=== PATIENT | male | born 1950 | race Caucasian/White ===

== ENCOUNTER → 2017-05-31 10:55 | Outpatient (POV) | payer MEDICARE, SELFPAY | PROVIDERS: Family Provider Family Medicine; Visit Provider Otolaryngology | DX: Z00.00 Encounter for general adult medical examination without abnormal findings (principal) ==

== ENCOUNTER 2018-08-03 12:02 | Emergency (ER) | payer MEDICARE, SELFPAY ==
[2018-08-03 12:17] VITALS: BP 131/71; PULSE 88; RESP 16; TEMP 36.6; O2SAT 98; BMI 34.4
--- NOTE | 2018-08-03 12:32 | HMH.EDUTC ---
[facility] [place] Disposition Clinical Impression: Constipation Qualifiers: Constipation type: unspecified constipation type Qualified Code(s): K59.00 - Constipation, unspecified Disposition: Home, Self-Care Condition on Discharge: Good Instructions: Constipation (Alternative Therapy), Constipation, Increased Dietary Fiber May Improve Constipation Conditions With Pelvic Carlos Alberto, DI for Constipation, DI for Fecal Impaction, Fecal Impaction Additional Instructions: Make sure to be drinking plenty of fluids this will help to prevent constipation Exercise may help to prevent constipation *Make sure to eat plenty of fiber to help keep bowels moving and prevent constipation Over the counter Stool softner may help Return if needed Follow up with family doctor if symptoms return or continue Over the counter glycerin suppositorys may help to soften stool and help it to pass easily Straight to ER if any life threatening sympotms Referrals: Hernán Duarte [Primary Care Provider] - As needed Time of Disposition: 13:51 Medical Decision Making - Flo Inquiry Pt receiving controlled substance: No Flo was queried for this patient: No Vital Signs: 08/03/18 12:17 08/03/18 13:54 Temperature 97.9 F 97.9 F Temperature Source Oral Oral Pulse Rate 88 Pulse Rate [Right Brachial] 88 Respiratory Rate 16 16 Blood Pressure 131/71 Blood Pressure [Right Arm] 131/71 Blood Pressure Mean [Right Arm] 91 Blood Pressure Source Automatic Cuff Blood Pressure Source [Right Arm] Automatic Cuff Blood Pressure Position Sitting Blood Pressure Position [Right Arm] Sitting 02 Sat by Pulse Oximetry 98 Oxygen Delivery Method Room Air Room Air - Radiology Data #1 Image(s): KUB Image Reviewed: Yes I reviewed the patient's radiology image w/the ED provider Discussed with Dr Everett moderate amount of stool noted, constipation - Reevaluation(s) Time: 13:20 Reevaluation #1: Patient reports feeling much better and no longer having pain and pressure in rectal area, patient to the bathroom and had another bowel movement and urinated easily Patient to be dc'd home [facility] [place] HPI - General Stated complaint: Constipated and trouble u Time Seen by Provider: 08/03/18 12:33 Mode of Arrival: Ambulatory Source of Information: Patient, Spouse Limitations: No Limitations Description of Symptoms (Recalled from Triage Doc. by RN): PATIENT C/O CONSTIPATION X2 DAYS AND TROUBLE URINATING SINCE LAST NIGHT HEENT Symptoms (Recalled from RN notes): No Resp Symptoms (Recalled from RN notes): No Skin Symptoms (Recalled from RN notes): No MS Symptoms (Recalled from RN notes): No Functional Status (Recalled from RN notes): N/A - History of Present Illness Provider Complaint: Patient states that he has been constipated for 2 days and feels like he has stool stuck at his rectum State that he tries to go and feels the pressure to go but unable to get anything out State that he feels like it is pressing on his prostate or bladder making him feel like he has to urinate State that last urinated around 10am this morning ever since has been feeling like he needs to go but doesn't State that he feels like his poop is stuck at his rectum and wont come out and makes it hard to sit on his buttock because of the pressure - Related Data Home Medications Medication Instructions Recorded Confirmed Allopurinol [Allopurinol 300mg 300 mg PO DAILY 08/03/18 08/03/18 tablet] Aspirin [Aspir 81] 81 mg PO DAILY 08/03/18 08/03/18 Clopidogrel Bisulfate [Plavix 75mg 75 mg PO DAILY 08/03/18 08/03/18 Tab] Garlic 1 each PO DAILY 08/03/18 08/03/18 Lisinopril [Lisinopril 20mg Tab] 20 mg PO BID 08/03/18 08/03/18 [place]-3 Fatty Acids/Fish Oil 2 each PO DAILY 08/03/18 08/03/18 [[place] 3 1,000 mg Softgel] hydroCHLOROthiazide [HCTZ 25mg 25 mg PO DAILY 08/03/18 08/03/18 tab] Allergies Allergy/AdvReac Type Severity Reaction Status Date / Time Sulfa (Sulfonamide Allergy Unknown
--- NOTE | 2018-08-03 12:49 | XR_ITS ---
XR KUB HISTORY: ITS.REASON: CONSTIPATION ORDERING PHYSICIAN: Rox Lazaro APRN PATIENT AGE: 67 years COMPARISON: None FINDINGS: Nonspecific bowel gas pattern. No intestinal obstruction. There is only a small amount of formed feces in the sigmoid colon. No evidence of rectal fecal impaction. Degenerative changes are present in the lumbar spine and hips. There are surgical clips in the right upper quadrant IMPRESSION: No acute finding
--- NOTE | 2018-08-03 12:50 | ED_ITS ---
[facility] [place] Disposition Clinical Impression: Constipation Qualifiers: Constipation type: unspecified constipation type Qualified Code(s): K59.00 - Constipation, unspecified Disposition: Home, Self-Care Condition on Discharge: Good Instructions: Constipation (Alternative Therapy), Constipation, Increased Dietary Fiber May Improve Constipation Conditions With Pelvic Carlos Alberto, DI for Constipation, DI for Fecal Impaction, Fecal Impaction Additional Instructions: Make sure to be drinking plenty of fluids this will help to prevent constipation Exercise may help to prevent constipation *Make sure to eat plenty of fiber to help keep bowels moving and prevent constipation Over the counter Stool softner may help Return if needed Follow up with family doctor if symptoms return or continue Over the counter glycerin suppositorys may help to soften stool and help it to pass easily Straight to ER if any life threatening sympotms Referrals: Hernán Duarte [Primary Care Provider] - As needed Time of Disposition: 13:51 Medical Decision Making - Flo Inquiry Pt receiving controlled substance: No Flo was queried for this patient: No Vital Signs: 08/03/18 12:17 08/03/18 13:54 Temperature 97.9 F 97.9 F Temperature Source Oral Oral Pulse Rate 88 Pulse Rate [Right Brachial] 88 Respiratory Rate 16 16 Blood Pressure 131/71 Blood Pressure [Right Arm] 131/71 Blood Pressure Mean [Right Arm] 91 Blood Pressure Source Automatic Cuff Blood Pressure Source [Right Arm] Automatic Cuff Blood Pressure Position Sitting Blood Pressure Position [Right Arm] Sitting 02 Sat by Pulse Oximetry 98 Oxygen Delivery Method Room Air Room Air - Radiology Data #1 Image(s): KUB Image Reviewed: Yes I reviewed the patient's radiology image w/the ED provider Discussed with Dr Everett moderate amount of stool noted, constipation - Reevaluation(s) Time: 13:20 Reevaluation #1: Patient reports feeling much better and no longer having pain and pressure in rectal area, patient to the bathroom and had another bowel movement and urinated easily Patient to be dc'd home [facility] [place] HPI - General Stated complaint: Constipated and trouble u Time Seen by Provider: 08/03/18 12:33 Mode of Arrival: Ambulatory Source of Information: Patient, Spouse Limitations: No Limitations Description of Symptoms (Recalled from Triage Doc. by RN): PATIENT C/O CONSTIPATION X2 DAYS AND TROUBLE URINATING SINCE LAST NIGHT HEENT Symptoms (Recalled from RN notes): No Resp Symptoms (Recalled from RN notes): No Skin Symptoms (Recalled from RN notes): No MS Symptoms (Recalled from RN notes): No Functional Status (Recalled from RN notes): N/A - History of Present Illness Provider Complaint: Patient states that he has been constipated for 2 days and feels like he has stool stuck at his rectum State that he tries to go and feels the pressure to go but unable to get anything out State that he feels like it is pressing on his prostate or bladder making him feel like he has to urinate State that last urinated around 10am this morning ever since has been feeling like he needs to go but doesn't State that he feels like his poop is stuck at his rectum and wont come out and makes it hard to sit on his buttock because of the pressure - Related Data Home Medications Medication Instructions Recorded Confirmed A
[2018-08-03 13:54] VITALS: BP 131/71; PULSE 88; RESP 16; TEMP 36.6; O2SAT 98
== END 2018-08-03 13:55 | disposition home or self-care (01) ==
PROVIDERS: Emergency Provider Nurse Practitioner; PCP Family Medicine
DX: K59.00 Constipation, unspecified (principal); F17.290 Nicotine dependence, other tobacco product, uncomplicated
CPT/HCPCS: G0463; 74018; 99201

== ENCOUNTER → 2018-10-03 13:00 | Outpatient (CLI) | payer MEDICARE, OTHER, SELFPAY ==
--- NOTE | 2018-10-03 13:14 | MR_ITS ---
MR lumbar spine wo con, MR 3-d myelogram/MRCP HISTORY: Low back pain X 10-12 months. RT hip pain and RT lower extremity pain. ITS.REASON: LOW BACK PAIN ORDERING PHYSICIAN: Hernán Duarte PATIENT AGE: 67 years Comparison: None TECHNIQUE: Standard multiplanar multiecho sequences are performed without contrast. 3-D MIP and myelographic images are also rendered and reviewed FINDINGS: There is normal alignment. The spinal cord ends at the L1 level. T12-L1: Mild degenerative disc disease with mild facet and ligamentum flavum hypertrophy. L1-L2: Degenerative disc disease with bulging disc with with facet and ligamentum flavum hypertrophy with moderate bilateral lateral recess and foraminal narrowing slightly greater on the left. L2-L3: Mild degenerative disc disease with minimal bulging disc along with facet and ligamentum flavum hypertrophy with moderate right and mild left lateral recess and moderate bilateral foraminal narrowing. There is also a small right paracentral disc herniation with inferior extrusion. The disc is extruded inferiorly x 11 mm. Results in severe right lateral recess narrowing and compression upon the right L3 nerve root. L3-L4: There is a moderate sized central/right paracentral disc herniation with superior extrusion. The disc is extruded superiorly for a length of 1.9 cm. This is causing moderate compression upon the thecal sac along with compression upon the right L4 nerve root. There is facet ligamentum hypertrophy at this level with resultant severe bilateral lateral recess and severe bilateral foraminal narrowing. The foraminal and lateral recess narrowing is worse on the right compared to the left side. There is resultant canal stenosis secondary to the disc herniation. There is also transverse narrowing of the canal at 11 mm secondary to the severe facet and ligamentum flavum hypertrophy. L4-L5: Mild anterolisthesis of L4 on L5 of 3 mm with mild bulging disc along with moderate to severe facet and ligamentum flavum hypertrophy with resultant moderate bilateral foraminal narrowing and moderate bilateral lateral recess narrowing. There is also transverse narrowing of the canal at 11 mm. L5-S1: Unremarkable. IMPRESSION: 1. Multilevel lumbar spondylosis with bulging discs, degenerative disc disease, facet and ligamentum flavum hypertrophy with very degrees of foraminal or lateral recess narrowing with borderline canal stenosis. PLEASE SEE ABOVE FOR DETAILED DESCRIPTION AT EACH LEVEL. 2. Mild degenerative disc disease at L2-L3 with minimal bulging disc along with facet and ligamentum flavum hypertrophy with moderate right and mild left lateral recess and moderate bilateral foraminal narrowing. There is also a small right paracentral disc herniation with inferior extrusion. The disc is extruded inferiorly x 11 mm. This results in severe right lateral recess narrowing and compression upon the right L3 nerve root. 3. Moderate sized central/right paracentral disc herniation at L3-L4 with superior extrusion. The disc is extruded superiorly for a length of 1.9 cm. This is causing moderate compression upon the thecal sac along with compression upon the right L4 nerve root. There is facet ligamentum hypertrophy at this level with resultant severe bilateral lateral recess and severe bilateral foraminal narrowing. The foraminal and lateral recess narrowing is worse on the right compared to the left side. There is resultant canal stenosis secondary to the disc herniation. There is also transverse narrowing of the canal at 11 mm secondary to the severe facet and ligamentum flavum hypertrophy.
== END ==
PROVIDERS: PCP Family Medicine; Visit Provider Family Medicine
DX: M54.5 Low back pain (principal)
CPT/HCPCS: 72148; 76376

== ENCOUNTER 2019-07-02 14:35 | Emergency (ER) | payer MEDICARE, OTHER, SELFPAY ==
[2019-07-02 14:36] VITALS: BP 122/74; PULSE 100; RESP 18; TEMP 36.6; O2SAT 98; BMI 31.5
[2019-07-02 14:46] VITALS: BMI 34.4
--- NOTE | 2019-07-02 15:00 | HMH.EDBACK ---
ED Disposition Clinical Impression: Strain of lumbar region Disposition: Home, Self-Care Condition on Discharge: Good Instructions: DI for Low Back Pain Prescriptions: Nabumetone 750 mg PO BID 10 Days #20 tab Transmission Status: Pending to [facility] website # Tizanidine HCl [Zanaflex 4mg tablet] 4 mg PO TID 10 Days #30 tab Transmission Status: Pending to [facility] website # Referrals: Hernán Duarte [Primary Care Provider] - - Critical Care Critical Care Time: No Attestation: On 07/02/19, the high probability of a clinically significant, sudden or life threatening deterioration of the following system(s) required my full and direct attention, intervention and personal management. The time I documented below is in addition to time spent performing reported procedures but includes the following listed in this critical care notation. Medical Decision Making - Medical Records Medical records reviewed: Yes: I reviewed the patient's medical records. - Flo Inquiry Pt receiving controlled substance: No - Lab Data Lab results reviewed: Yes: I reviewed the patient's lab results. Orders (Tests/Meds): ED MEDICATIONS Generic Name Dose Route Start Last Admin Trade Name Freq PRN Reason Stop Dose Admin Ketorolac Tromethamine 60 mg 07/02/19 14:59 Toradol 60mg/2ml Vial IM 07/02/19 15:00 ONCE ONE Methylprednisolone Sodium Succinate 125 mg 07/02/19 14:59 Solu-Medrol 125mg/2ml Vial IM 07/02/19 15:00 ONCE ONE Orphenadrine Citrate 60 mg 07/02/19 15:00 Norflex 60mg/2ml Vial IM 07/02/19 15:01 ONCE ONE Back Pain HPI - General Chief Complaint: Back Pain/Injury Stated Complaint: Back Pain Time Seen by Provider: 07/02/19 15:00 Source of Information: Patient - History of Present Illness HPI Narrative: 68-year-old male presents to the ED with a lower back pain. Patient has chronic lower back pain but is manageable. 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 He describes the pain is sharp in the right iliac joint area. He denies any sort of bowel or bladder incontinence. He states his pain is 4 out of 10 and sharp. He states alleviating factors include sitting and laying down exacerbating factors include movement. Patient denies any fever shakes or chills patient denies any nausea vomiting diarrhea. - Related Data Home Medications Medication Instructions Recorded Confirmed Aspirin [Aspir 81] 81 mg PO DAILY 08/03/18 08/03/18 Clopidogrel Bisulfate [Plavix 75mg 75 mg PO DAILY 08/03/18 08/03/18 Tab] Garlic 1 each PO DAILY 08/03/18 08/03/18 [place]-3 Fatty Acids/Fish Oil 2 each PO DAILY 08/03/18 08/03/18 [[place] 3 1,000 mg Softgel] allopurinoL [Allopurinol 300mg 300 mg PO DAILY 08/03/18 08/03/18 tablet] hydroCHLOROthiazide [HCTZ 25mg 25 mg PO DAILY 08/03/18 08/03/18 tab] lisinopriL [Lisinopril 20mg Tab] 20 mg PO BID 08/03/18 08/03/18 Previous Rx's Medication Instructions Recorded Nabumetone 750 mg PO BID 10 Days #20 tab 07/02/19 Tizanidine HCl [Zanaflex 4mg 4 mg PO TID 10 Days #30 tab 07/02/19 tablet] Allergies Allergy/AdvReac Type Severity Reaction Status Date / Time Sulfa (Sulfonamide Allergy Unknown Verified 08/03/18 12:32 Antibiotics) [facility] History - Hepatitis A Screen Attestation statement:: This patient has been screened for Hepatitis A risk factors. I have reviewed the patient's past medical history: Yes Medical History: Denies:: Cancer, Diabetes Mellitus Type 1, Diabetes Mellitus Type 2, MRSA Laterality Cases: Bilateral: Tonsillectomy Amputation: No - Social History Smoking Status: Current every day smoker Tobacco Type: smokeless tobacco # Packs/Day (cigarettes): 0 Alcohol Intake: never Occupational Status: other ROS Obtained: Yes All systems reviewed & no additional complaints - Constitutional Constitutional: Reports sys
[2019-07-02 15:42] VITALS: BP 132/74; PULSE 78; RESP 18; TEMP 36.6; O2SAT 98
== END 2019-07-02 15:43 | disposition home or self-care (01) ==
PROVIDERS: Emergency Provider Family Medicine; PCP Family Medicine
DX: S33.5XXA Sprain of ligaments of lumbar spine, initial encounter (principal); X50.0XXA Overexertion from strenuous movement or load, initial encounter; Y92.73 Farm field as the place of occurrence of the external cause; I10 Essential (primary) hypertension; Z88.2 Allergy status to sulfonamides; Z90.09 Acquired absence of other part of head and neck
CPT/HCPCS: 96372; 99281

== ENCOUNTER → 2021-07-15 07:28 | Outpatient (CLI) | payer MEDICARE, OTHER, SELFPAY ==
--- NOTE | 2021-07-15 07:34 | FL_ITS ---
FINAL REPORT CLINICAL HISTORY: gerd, upper abd pain x 1 month fluoro time-1.55 FINDINGS: UPPER GI EXAM HISTORY: Dysphagia. Epigastric pain. PROCEDURE: The patient ingested barium. Effervescent crystals were also administered. Spot and overhead films were obtained. FINDINGS: The esophagus is normal. There is no hiatal hernia. There is no gastroesophageal reflux. Peristalsis is normal. The rugal fold pattern of the stomach is normal. The duodenal bulb is normal. Aspiration of a small amount of contrast was noted during the exam. FLUOROSCOPY TIME: 1.55 minutes. 13 radiographs were obtained. IMPRESSION: Aspiration of contrast. Otherwise, unremarkable exam. Films reviewed , interpreted and dictated by Dr. Del Rio. Transcribed by Connor Snell PA-C. Reviewed, Interpreted and Dictated by Murray Del Rio III, MD Transcribed by SHANTANU Jerry Authenticated by Murray Del Rio III, MD on 07/15/2021 12:26:59 PM [facility]
[2021-07-15 09:38] LABS: Prostate Specific Ag Screen 6.9 ng/ml (0.0-4.0)
[2021-07-17 10:03] LABS: H. pylori Stool Ag, EIA Negative (Negative)
== END ==
PROVIDERS: PCP Family Medicine; Visit Provider Family Medicine
DX: R10.13 Epigastric pain (principal); K21.9 Gastro-esophageal reflux disease without esophagitis; R97.20 Elevated prostate specific antigen [PSA]; Z12.5 Encounter for screening for malignant neoplasm of prostate
CPT/HCPCS: 36415; 74221; 74246; 87338; G0103

== ENCOUNTER 2021-09-01 10:24 | Emergency (ER) | payer MEDICARE, OTHER, SELFPAY ==
[2021-09-01 10:40] VITALS: BP 149/72; PULSE 72; RESP 17; TEMP 36.8; O2SAT 96; BMI 29.0
--- NOTE | 2021-09-01 11:12 | HMH.EDUTC ---
[facility] [place] Clinical Impression: Viral syndrome Disposition: Home, Self-Care Condition on Discharge: Good Instructions: DI for Nasal Congestion, DI for COVID-19 (Suspected or Confirmed ), Preventing the Spread of Coronavirus Discharge Instructions Additional Instructions: *Monitor Temp, Over the counter Motrin or Tylenol as directed/as needed Tylenol every 4 hours and Motrin every 6 hours (as long as your family doctor has told you that you can take it) for fever or pain. and straight to ER if unable to lower temp less than 101.0 after medication given *Warm salt water gargles may help to soothe the throat *Throat Lozenges *Warm fluids like tea with honey may help to soothe the throat *Sleep elevated *Humidifier/Vaporizer Follow up IMMEDIATELY for new or worsening symptoms or no Noticeable improvement over the next 48-72 hours. 911 for difficulty breathing or swallowing You were tested for today for COVID19 your test result should be back in the next 24-48 hours, you may check your results on the [facility] My Health Portal Make sure to take your Vitamins Vit. C Vit D and Zinc if you can take them Referrals: Hernán Duarte [Primary Care Provider] - As needed Time of Disposition: 11:17 Medical Decision Making - Flo Inquiry Pt receiving controlled substance: No Flo was queried for this patient: No Vital Signs: 09/01/21 10:40 09/01/21 11:18 Temperature 98.2 F 98.2 F Temperature Source Oral Pulse Rate 72 Pulse Rate [Right Brachial] 72 Respiratory Rate 17 17 Blood Pressure 149/72 H Blood Pressure [Right Arm] 149/72 H Blood Pressure Mean [Right Arm] 97 Blood Pressure Source [Right Arm] Automatic Cuff Blood Pressure Position [Right Arm] Sitting 02 Sat by Pulse Oximetry 96 Oxygen Delivery Method Room Air Orders (Tests/Meds): ORDERS Category Date Time Status Covid-19 Nasal PCR ([facility]) Routine Lab 09/01/21 10:45 Received [facility] [place] HPI - General Stated complaint: cough, congestion, sore throat Time Seen by Provider: 09/01/21 11:12 Mode of Arrival: Ambulatory Source of Information: Patient Limitations: No Limitations Description of Symptoms (Recalled from Triage Doc. by RN): PATIENT C/O SINUS PRESSURE AND COUGH. TESTED POSITIVE FOR COVID WITH A HOME TEST YESTERDAY HEENT Symptoms (Recalled from RN notes): Yes Resp Symptoms (Recalled from RN notes): Yes Skin Symptoms (Recalled from RN notes): No MS Symptoms (Recalled from RN notes): No Functional Status (Recalled from RN notes): WNL - History of Present Illness Provider Complaint: Patient state that he has been having sinus congestion and cough States that it started last Tuesday States that he is feeling better today but took an at home COVID test and it was positive so family wanted him to come in and get tested - Related Data Home Medications Medication Instructions Recorded Confirmed Aspirin [Aspir 81] 81 mg PO DAILY 08/03/18 08/03/18 Clopidogrel Bisulfate [Plavix 75mg 75 mg PO DAILY 08/03/18 08/03/18 Tab] Garlic 1 each PO DAILY 08/03/18 08/03/18 [place]-3 Fatty Acids/Fish Oil 2 each PO DAILY 08/03/18 08/03/18 [[place] 3 1,000 mg Softgel] allopurinoL [Allopurinol 300mg 300 mg PO DAILY 08/03/18 08/03/18 tablet] hydroCHLOROthiazide [HCTZ 25mg 25 mg PO DAILY 08/03/18 08/03/18 tab] lisinopriL [Lisinopril 20mg Tab] 20 mg PO BID 08/03/18 08/03/18 Previous Rx's Medication Instructions Recorded Nabumetone 750 mg PO BID 10 Days #20 tab 07/02/19 Tizanidine HCl [Zanaflex 4mg 4 mg PO TID 10 Days #30 tab 07/02/19 tablet] Allergies Allergy/AdvReac Type Severity Reaction Status Date / Time Sulfa (Sulfonamide Allergy Unknown Verified 08/03/18 12:32 Antibiotics) - Worker's Comp Is this a Worker's Comp case?: No [facility] History - Hepatitis A Screen Attestation statement:: This patient has been screened for Hepatitis A risk factors. I have reviewed the patient's past medical history: Yes Medical
[2021-09-01 11:18] VITALS: BP 149/72; PULSE 72; RESP 17; TEMP 36.8; O2SAT 96
== END 2021-09-01 11:21 | disposition home or self-care (01) ==
PROVIDERS: Emergency Provider Nurse Practitioner; PCP Family Medicine
DX: U07.1 COVID-19 (principal); R05.9 Cough, unspecified; R09.89 Other specified symptoms and signs involving the circulatory and respiratory systems; J02.9 Acute pharyngitis, unspecified
CPT/HCPCS: 99212; C9803; G0463; U0003; U0005

== ENCOUNTER → 2021-09-16 07:55 | Outpatient (CLI) | payer MEDICARE, OTHER, SELFPAY ==
[2021-09-16 08:58] LABS: Anion Gap 11.6 mEq/L (5-15); Blood Urea Nitrogen 17 mg/dl (9-20); Calcium 9.2 mg/dl (8.4-10.2); Carbon Dioxide 29 mmol/L (22.0-30.0); Chloride 99 mmol/L (98-107); Estimated Glomerular Filt Rate 83 ml/min (>60); GFR (African American) 101 ML/MIN (>60); Glucose 194 mg/dl (74-100); Magnesium 1.5 mg/dl (1.6-2.3); Potassium 3.6 mmoL/L (3.5-5.1); Sodium 136 mmol/L (136-145)
[2021-09-17 09:13] LABS: PSA, Free 0.72 ng/mL; Prostate Specific Ag 3.8 ng/mL (0.0-4.0)
== END ==
PROVIDERS: PCP Family Medicine; Visit Provider Family Medicine
DX: N40.1 Benign prostatic hyperplasia with lower urinary tract symptoms (principal)
CPT/HCPCS: 36415; 80048; 83735; 84153; 84154

== ENCOUNTER 2022-06-30 08:00 | Outpatient (RCR) | payer MEDICARE, OTHER, SELFPAY | END 2022-06-30 08:05 | disposition home or self-care (01) | LOC: PT 08:00 | PROVIDERS: PCP Family Medicine; Visit Provider Nurse Practitioner | DX: M51.16 Intervertebral disc disorders with radiculopathy, lumbar region (principal) | CPT/HCPCS: 97010; 97012; 97014; 97016; 97110; 97163; G0283 ==

== ENCOUNTER → 2022-09-16 11:00 | Outpatient (CLI) | payer MEDICARE, OTHER, SELFPAY ==
[2022-09-16 10:22] LABS: Hemoglobin A1C 6.5 % (4.0-6.0)
== END ==
PROVIDERS: PCP Family Medicine; Visit Provider Family Medicine
DX: R73.9 Hyperglycemia, unspecified (principal)
CPT/HCPCS: 83036

== ENCOUNTER → 2023-01-17 16:00 | Outpatient (CLI) | payer MEDICARE, OTHER, SELFPAY | PROVIDERS: PCP Family Medicine; Visit Provider Family Medicine | DX: E11.9 Type 2 diabetes mellitus without complications (principal) | CPT/HCPCS: 83036 ==

== ENCOUNTER 2023-05-03 16:43 | Outpatient (CLI) | payer MEDICARE, OTHER, SELFPAY ==
[2023-05-03 16:35] LABS: Alanine Aminotransferase 30 U/L (12-78); Albumin Level 4.3 g/dl (3.5-5.0); Albumin/Globulin Ratio 1.7 (1.1-1.8); Alkaline Phosphatase 128 U/L (38-126); Anion Gap 15.2 mEq/L (5-15); Aspartate Amino Transferase 28 U/L (17-59); Bilirubin,Total 0.4 mg/dl (0.2-1.3); Blood Urea Nitrogen 20 mg/dl (9-20); Calcium 9.4 mg/dl (8.4-10.2); Carbon Dioxide 28 mmol/L (22.0-30.0); Chloride 100 mmol/L (98-107); Estimated Glomerular Filt Rate 73 ml/min (>60); GFR (African American) 89 ML/MIN (>60); Globulin 2.6 g/dL (1.3-3.2); Glucose 112 mg/dl (74-100); Potassium 4.2 mmoL/L (3.5-5.1); Sodium 139 mmol/L (136-145); Total Protein,Serum 6.9 g/dl (6.3-8.2)
[2023-05-03 16:43] LABS: Basophils % 0.5 % (0.1-2.0); Eosinophils % 0.4 % (0.1-12.0); Hematocrit 44.5 % (42.0-52.0); Hemoglobin 14.6 g/dL (14.1-18.0); Lymphocytes # 1.6 K/mm3 (0.7-4.5); Lymphocytes % 19.2 % (10-50); Mean Corpuscular HGB Conc 32.8 g/dL (31.8-35.4); Mean Corpuscular Hemoglobin 32.7 pg (27.0-31.2); Mean Corpuscular Volume 99.7 fl (80-94); Mean Platelet Volume 8.7 fl (7.4-10.4); Monocytes # 0.5 K/mm3 (0.1-1.0); Monocytes % 6.6 % (1.7-9.3); Neutrophils % 73.2 % (37.0-80.0); Platelet Count 263 K/mm3 (142-424); Red Blood Count 4.46 M/mm3 (4.60-6.20); Red Cell Distribution Width 13.8 % (11.5-17.5); White Blood Count 8.1 K/mm3 (4.8-10.8)
== END 2023-05-03 23:59 ==
PROVIDERS: PCP Family Medicine; Visit Provider Family Medicine
DX: I10 Essential (primary) hypertension (principal)
CPT/HCPCS: 80053; 85025

== ENCOUNTER 2023-05-09 08:27 | Outpatient (CLI) | payer MEDICARE, OTHER, SELFPAY ==
--- NOTE | 2023-05-09 08:28 | US_ITS ---
FINAL REPORT CLINICAL HISTORY: RUQ pain COMPARISON: None FINDINGS: Sonographic images of the abdomen were obtained. The liver is fatty infiltrated. The gallbladder is surgically absent. The common hepatic duct measures 6 mm, which is within normal limits. The pancreas is partially obscured. The spleen size is normal. The right kidney measures 11.6 cm in length. The left kidney measures 10.5 cm in length. There is a 1.9 cm right renal cyst. There is a 1.7 cm cystic area in the lower pole of the left kidney which may represent a parapelvic cyst. There is no evidence of hydronephrosis. The aorta has an unremarkable appearance. Limited images of the inferior vena cava are unremarkable. IMPRESSION: Fatty liver. Probable bilateral renal cysts as above. Reviewed, Interpreted and Dictated by Murray Del Rio III, MD Transcribed by Trish Tobias Authenticated and [facility]
== END 2023-05-09 23:59 ==
PROVIDERS: PCP Family Medicine; Visit Provider Family Medicine
DX: R10.11 Right upper quadrant pain (principal)
CPT/HCPCS: 76700

== ENCOUNTER 2023-09-05 16:48 | Outpatient (CLI) | payer MEDICARE, OTHER, SELFPAY ==
[2023-09-05 17:16] LABS: Basophils % 0.6 % (0.1-2.0); Eosinophils # 0.1 K/mm3 (0.0-0.4); Eosinophils % 0.7 % (0.1-12.0); Hematocrit 42.8 % (42.0-52.0); Hemoglobin 14.4 g/dL (14.1-18.0); Lymphocytes # 1.2 K/mm3 (0.7-4.5); Lymphocytes % 16.1 % (10-50); Mean Corpuscular HGB Conc 33.6 g/dL (31.8-35.4); Mean Platelet Volume 8.7 fl (7.4-10.4); Monocytes # 0.5 K/mm3 (0.1-1.0); Monocytes % 6.3 % (1.7-9.3); Neutrophils # 5.5 K/mm3 (1.8-7.8); Neutrophils % 76.2 % (37.0-80.0); Platelet Count 263 K/mm3 (142-424); Red Blood Count 4.37 M/mm3 (4.60-6.20); Red Cell Distribution Width 14.1 % (11.5-17.5); White Blood Count 7.2 K/mm3 (4.8-10.8)
[2023-09-05 17:57] LABS: Alanine Aminotransferase 26 U/L (12-78); Albumin Level 4.4 g/dl (3.5-5.0); Albumin/Globulin Ratio 1.6 (1.1-1.8); Alkaline Phosphatase 99 U/L (38-126); Anion Gap 13.5 mEq/L (5-15); Aspartate Amino Transferase 27 U/L (17-59); Bilirubin,Total 0.6 mg/dl (0.2-1.3); Blood Urea Nitrogen 22 mg/dl (9-20); Calcium 9.4 mg/dl (8.4-10.2); Carbon Dioxide 29 mmol/L (22.0-30.0); Chloride 101 mmol/L (98-107); Estimated Glomerular Filt Rate 66 ml/min (>60); GFR (African American) 79 ML/MIN (>60); Globulin 2.7 g/dL (1.3-3.2); Glucose 114 mg/dl (74-100); Potassium 4.5 mmoL/L (3.5-5.1); Sodium 139 mmol/L (136-145); Total Protein,Serum 7.1 g/dl (6.3-8.2)
[2023-09-05 18:30] LABS: Thyroid Stimulating Hormone 1.63 uIU/mL (0.465-4.68)
[2023-09-06 13:53] LABS: Hemoglobin A1C 6.3 % (4.0-6.0)
[2023-09-07 08:21] LABS: PSA, Free 1.37 ng/mL; Prostate Specific Ag 6.4 ng/mL (0.0-4.0)
== END 2023-09-05 23:59 | disposition home or self-care (01) ==
LOC: LAB.DROPOF 16:48
PROVIDERS: PCP Family Medicine; Visit Provider Family Medicine
DX: I10 Essential (primary) hypertension (principal); R97.20 Elevated prostate specific antigen [PSA]; R73.09 Other abnormal glucose
CPT/HCPCS: 80053; 83036; 84153; 84154; 84443; 85025

== ENCOUNTER 2023-09-06 07:41 | Outpatient (CLI) | payer MEDICARE, SELFPAY | END 2023-09-06 23:59 | disposition home or self-care (01) | LOC: LAB.DROPOF 09-08 07:41 | PROVIDERS: PCP Family Medicine; Visit Provider Family Medicine | DX: R73.09 Other abnormal glucose (principal) | CPT/HCPCS: 83036 ==

== ENCOUNTER 2023-12-27 11:13 | Outpatient (POV) | payer MEDICARE, OTHER, SELFPAY | END 2023-12-27 23:59 | disposition home or self-care (01) | LOC: SC 11:13 | PROVIDERS: Visit Provider Specialist/Technologist | DX: Z00.00 Encounter for general adult medical examination without abnormal findings (principal) ==

== ENCOUNTER 2024-02-06 11:30 | Outpatient (CLI) | payer MEDICARE, OTHER, SELFPAY ==
[2024-02-06 16:27] LABS: Basophils # 0.1 K/mm3 (0-0.2); Basophils % 0.9 % (0.1-2.0); Eosinophils # 0.1 K/mm3 (0.0-0.4); Eosinophils % 1.6 % (0.1-12.0); Hematocrit 42.9 % (42.0-52.0); Hemoglobin 14.5 g/dL (14.1-18.0); Lymphocytes # 1.2 K/mm3 (0.7-4.5); Lymphocytes % 15.8 % (10-50); Mean Corpuscular HGB Conc 33.9 g/dL (31.8-35.4); Mean Corpuscular Hemoglobin 32.3 pg (27.0-31.2); Mean Corpuscular Volume 95.6 fl (80-94); Mean Platelet Volume 7.7 fl (7.4-10.4); Monocytes # 0.4 K/mm3 (0.1-1.0); Neutrophils # 5.6 K/mm3 (1.8-7.8); Neutrophils % 75.8 % (37.0-80.0); Platelet Count 265 K/mm3 (142-424); Red Blood Count 4.49 M/mm3 (4.60-6.20); Red Cell Distribution Width 13.6 % (11.5-17.5); White Blood Count 7.4 K/mm3 (4.8-10.8)
[2024-02-06 16:57] LABS: Anion Gap 11.5 mEq/L (5-15); Estimated Glomerular Filt Rate 65 ml/min (>60); GFR (African American) 79 ML/MIN (>60)
[2024-02-06 16:58] LABS: VLDL Cholesterol 38 mg/dL (0-40)
[2024-02-06 17:45] LABS: Alanine Aminotransferase 29 U/L (12-78); Albumin Level 4.3 g/dl (3.5-5.0); Albumin/Globulin Ratio 1.7 (1.1-1.8); Alkaline Phosphatase 114 U/L (38-126); Aspartate Amino Transferase 31 U/L (17-59); Bilirubin,Total 0.6 mg/dl (0.2-1.3); Blood Urea Nitrogen 24 mg/dl (9-20); Calcium 9.4 mg/dl (8.4-10.2); Carbon Dioxide 27 mmol/L (22.0-30.0); Chloride 107 mmol/L (98-107); Chol/HDL Ratio 5.6 (1-3.5); Cholesterol 195 mg/dl (140-200); Globulin 2.6 g/dL (1.3-3.2); Glucose 116 mg/dl (74-100); HDL Cholesterol 35 mg/dl (40-60); Potassium 4.5 mmoL/L (3.5-5.1); Sodium 141 mmol/L (136-145); Total Protein,Serum 6.9 g/dl (6.3-8.2); Triglycerides 191 mg/dl (30-150)
[2024-02-06 17:47] LABS: Hemoglobin A1C 6.1 % (4.0-6.0)
[2024-02-06 17:56] LABS: Direct LDL Cholesterol 122.72 mg/dL (100-129)
[2024-02-06 18:16] LABS: Prostate Specific Ag Screen 4.9 ng/ml (0.0-4.0); Thyroid Stimulating Hormone 1.27 uIU/mL (0.465-4.68)
[2024-02-06 20:13] LABS: HIV (1&2) Antibody Rapid NONREACTIVE (NONREACTIVE)
[2024-02-07 09:16] LABS: HCV Ab Non Reactive (Non Reactive)
== END 2024-02-06 23:59 | disposition home or self-care (01) ==
LOC: LAB.DROPOF 02-07 13:59
PROVIDERS: PCP Family Medicine; Visit Provider Family Medicine
DX: Z11.59 Encounter for screening for other viral diseases (principal); Z12.5 Encounter for screening for malignant neoplasm of prostate; E11.9 Type 2 diabetes mellitus without complications; I10 Essential (primary) hypertension
CPT/HCPCS: 80053; 80061; 83036; 84443; 85025; 86803; 87389; G0103

== ENCOUNTER 2024-03-30 11:18 | Observation (INO) | payer MEDICARE, SELFPAY ==
[2024-03-30] VITALS (10 sets, daily range): BP systolic 112–168; BP diastolic 45–86; PULSE 60–89; RESP 16–18; TEMP 36.6–36.9; O2SAT 95–99; BMI 32.1; BMI 30.7
--- NOTE | 2024-03-30 11:34 | CT_ITS ---
FINAL REPORT TECHNIQUE: After the administration of intravenous contrast, axial images were obtained through the abdomen and pelvis by computed tomography. The study was performed with techniques to keep radiation dose as low as reasonably achievable, (ALARA). Individual dose reduction techniques using automated exposure control or adjustment of mA and/or kV according to the patient's size were employed. CLINICAL HISTORY: Diffuse abdominal tenderness, Hx cholecystectomy constipation FINDINGS: Abdomen: The lung bases are clear. There is moderate fatty infiltration of the liver. The gallbladder is absent. There are calcified granulomas in the spleen. The pancreas and adrenals appear unremarkable. There is a benign-appearing cyst at the lateral margin of the right kidney measuring 2.2 x 1.5 cm. The aorta is normal in caliber. There is no free fluid or adenopathy. Pelvis: The appendix is mildly enlarged but air-filled. No surrounding inflammation is identified. There is a moderate amount of stool throughout the colon, particularly in the rectum. The prostate is enlarged measuring 7.0 x 5.9 cm. There is subtle stranding surrounding the inferior rectum consistent with mild proctitis. The urinary bladder is unremarkable. There is no free fluid or adenopathy. IMPRESSION: Moderate stool burden, particularly in the rectum with findings consistent with mild proctitis. Reviewed, Interpreted and Dictated by Trevor Linda MD Transcribed by Cherie Fernandez Authenticated and [facility]
[2024-03-30] MEDS: 0.9 % SODIUM CHLORIDE 1000ML 1,000 ML 999 ML IV (11:38)
[2024-03-30 11:39] LABS: Basophils # 0.1 K/mm3 (0-0.2); Basophils % 0.4 % (0.1-2.0); Eosinophils # 0.1 K/mm3 (0.0-0.4); Eosinophils % 0.4 % (0.1-12.0); Hemoglobin 15.4 g/dL (14.1-18.0); Lymphocytes # 1.2 K/mm3 (0.7-4.5); Lymphocytes % 8.5 % (10-50); Mean Corpuscular HGB Conc 34.2 g/dL (31.8-35.4); Mean Corpuscular Hemoglobin 31.8 pg (27.0-31.2); Mean Corpuscular Volume 92.8 fl (80-94); Mean Platelet Volume 9.3 fl (7.4-10.4); Monocytes # 0.7 K/mm3 (0.1-1.0); Monocytes % 5.4 % (1.7-9.3); Neutrophils # 11.6 K/mm3 (1.8-7.8); Neutrophils % 84.9 % (37.0-80.0); Platelet Count 267 K/mm3 (142-424); Red Blood Count 4.85 M/mm3 (4.60-6.20); White Blood Count 13.7 K/mm3 (4.8-10.8)
--- NOTE | 2024-03-30 11:41 | PC.NURSE ---
Patient assisted to the bathroom.
--- NOTE | 2024-03-30 11:44 | ED_ITS ---
Discharge Plan Disposition Patient Disposition: Admitted Chief Complaint: Abdominal Pain Clinical Impressions Clinical Impression: Constipation, Acute proctitis, Fecal impaction, Acute urinary retention Discharge ED Provider: Jordyn Duran General Adult HPI <Jordyn Duran MD - Last Filed: 03/30/24 15:45> General Chief complaint: Abdominal Pain Stated complaint: constipation, abd pain, Time Seen by Provider: 03/30/24 11:22 Mode of Arrival: Wheelchair Source of Information: Patient Limitations: No Limitations Description of Symptoms (Recalled from ER Triage Doc. by RN): Reports abdomen and anal pain. States that he feels constipated. Did report that he did a fleets enema at 9am and also took Miralax at 930am. History of Present Illness HPI narrative: Patient is a 73-year-old male presenting with abdominal pain. Patient is accompanied by his who provides additional history at bedside. Patient reports last bowel movement approximately 3 days ago and notes that it was normal and not bloody or black. Patient has had increasing abdominal pain primarily in the right lower abdomen and now in the suprapubic region. Patient states he feels like he has to poop but cannot. Patient and his attempted an enema at home at approximately 9 AM and now the patient complains of anal pain. Patient states he urinated this morning without difficulty. Patient denies chest pain, shortness of breath, fever, chills. Related Data Home Medications ?Medication ?Instructions ?Recorded ?Confirmed aspirin 81 mg tablet,delayed 81 mg PO DAILY HEART 08/03/18 03/30/24 release garlic 1 each PO DAILY Supplement 08/03/18 03/30/24 omega-3 fatty acids-fish oil 300 2 each PO DAILY Supplement 08/03/18 03/30/24 mg-1,000 mg capsule zinc acetate 50 mg (zinc) capsule 50 mg PO DAILY 10/16/21 03/30/24 colchicine 0.6 mg tablet (Colcrys) 0.6 mg PO DAILY PRN GOUT 05/03/23 03/30/24 Previous Rx's ?Medication ?Instructions ?Recorded allopurinol 300 mg tablet 300 mg PO DAILY GOUT #90 tabs 05/03/23 azelastine 137 mcg (0.1 %) nasal 1 spray intranasal DAILY 30 days 06/07/23 spray #30 mL meclizine 12.5 mg tablet 12.5 mg PO TID PRN dizziness #30 08/16/23 tabs magnesium oxide 400 mg (241.3 mg See Rx Instructions .Route 10/07/23 magnesium) tablet .COMPLEX #90 tabs clopidogrel 75 mg tablet 75 mg PO DAILY Blood thinner #90 11/22/23 tabs amlodipine 5 mg tablet See Rx Instructions .Route 12/15/23 .COMPLEX #90 tabs gabapentin 300 mg capsule 300 mg PO TID #90 caps 01/31/24 esomeprazole magnesium 40 mg See Rx Instructions .Route 02/16/24 capsule,delayed release .COMPLEX #30 caps amoxicillin 500 mg tablet 500 mg PO TID #30 tabs 03/07/24 hydrochlorothiazide 25 mg tablet See Rx Instructions .Route 03/26/24 .COMPLEX #90 tabs lisinopril 20 mg tablet See Rx Instructions .Route 03/26/24 .COMPLEX #180 tabs Allergies Allergy/AdvReac Type Severity Reaction Status Date / Time Sulfa (Sulfonamide Allergy Unknown Verified 02/06/24 10:23 Antibiotics) [facility] <Jordyn Duran MD - Last Filed: 03/30/24 15:45> [facility] Disclaimer: The information contained in this section may have been updated after the patient was seen, as this information can be updated by other users. Medical History SNHL (sensorineural hearing loss) mild to moderate severe SNHL bilaterally per Audiometric Dysfunction of right eustachian tube Ringing in the ears Inflammation of eustachian tube Hearing loss Impacted cerumen of right ear Diabetes mellitus Gout Surgical History History of tonsillectomy H/O neck surgery History of cholecystectomy Family History Mother Coronary artery disease Father Cancer Alcoholism Social History Smoking Status: Never smoker alcohol intake: former (socially) substance use type: denies use current occupational status: other Travel in the last 8 weeks: None household members: other housing: other Have you lived/traveled outside [place] in past 30 days?: No Contact w/someone who lives/traveled outside [place] past 30 days?: No Exposure to someone with infectious disease in past 14 days?: No Do you have a fever (greater than 100.4 F or 38 C)?: No Have you tested positive for COVID-19: No Exposed to someone with COVID-19 in past 14 days?: No Do you have a sore throat?: No Do you have a cough?: No Do you have any weakness?: No Do you have any diarrhea?: No Are you experiencing any unusual bleeding?: No Do you have any muscle aches/pain?: No Do you have any abdominal pain?: No Are you experiencing loss of taste or smell?: No Other Medical History Have you received the Flu Vaccine for this season: No Have you received the Pneumonia Vaccine: Yes <Jordyn Duran MD - Last Filed: 03/30/24 15:45> ROS Obtained: Yes All systems reviewed & no additional complaints except as documented Physical Exam <Jordyn Duran MD - Last Filed: 03/30/24 15:45> General General appearance: alert and in distress Head Head exam: atraumatic, normocephalic and normal inspection Eye Eye exam: Present normal appearance, PERRL and EOMI ENT ENT exam: Present normal exam, normal oropharynx, mucous membranes moist and normal external ear exam Neck Neck exam: Present normal inspection, full ROM and trachea midline; Absent meningismus or lymphadenopathy Chest Chest inspection: Present normal inspection and symmetric chest wall rise; Absent tenderness Respiratory Respiratory exam: Present normal lung sounds bilaterally; Absent respiratory distress Cardiovascular Cardiovascular exam: Present regular rate and normal rhythm; Absent JVD Abdominal Exam Abdominal exam: Present soft and distention; Absent tenderness or guarding Extremities Exam Extremities exam: Present normal inspection, full ROM and normal capillary refill Back Exam Back exam: Present normal inspection; Absent tenderness Neurological Exam Neurological exam: Present alert and oriented X3 Psychiatric Psychiatric exam: Present normal affect and normal mood Skin Skin exam: Present warm, dry, intact and normal color Lymphatic Lymphatic Findings: no adenopathy Medical Decision Making <Jordyn Duran MD - Last Filed: 03/30/24 15:45> Medical Records Medical records reviewed: Yes I reviewed the patient's medical records. Screening: Per USPSTF and CDC recommendations, given the prevalence of disease in our region, it is our hospital?s policy to screen for HIV and viral Hepatitis for all patients aged 18 and over and those with ongoing risk factors. Flo Inquiry Pt receiving controlled substance: No Vital Signs: 03/30/24 11:19 03/30/24 11:28 03/30/24 11:30 Temperature 97.8 F Temperature Source Oral Pulse Rate 87 80 Pulse Rate [Radial] 89 Respiratory Rate 16 Blood Pressure 116/71 147/69 H Blood Pressure [Right Arm] 116/70 Blood Pressure Mean [Right Arm] 85 Blood Pressure Source [Right Arm] Automatic Cuff Blood Pressure Position [Right Arm] Sitting 02 Sat by Pulse Oximetry 98 96 95 Oxygen Delivery Method Room Air Room Air Room Air 03/30/24 13:18 03/30/24 13:30 03/30/24 17:09 Temperature Temperature Source Pulse Rate 65 63 78 Pulse Rate [Radial] Respiratory Rate Blood Pressure 119/51 L 121/45 L 112/77 Blood Pressure [Right Arm] Blood Pressure Mean [Right Arm] Blood Pressure Source [Right Arm] Blood Pressure Position [Right Arm] 02 Sat by Pulse Oximetry 99 97 98 Oxygen Delivery Method Room Air Room Air Room Air 03/30/24 17:31 Temperature Temperature Source Pulse Rate 60 Pulse Rate [Radial] Respiratory Rate Blood Pressure 131/56 L Blood Pressure [Right Arm] Blood Pressure Mean [Right Arm] Blood Pressure Source [Right Arm] Blood Pressure Position [Right Arm] 02 Sat by Pulse Oximetry 97 Oxygen Delivery Method Room Air Lab Data Lab results reviewed: Yes I reviewed the patient's lab results. Lab Results 03/30/24 11:31: WBC 13.7 H, RBC 4.85, Hgb 15.4, Hct 45.0, MCV 92.8, MCH 31.8 H, MCHC 34.2, RDW 13.0, Plt Count 267, MPV 9.3, Neut % (Auto) 84.9 H, Lymph % (Auto) 8.5 L, Mcdonough % (Auto) 5.4, Eos % (Auto) 0.4, Baso % (Auto) 0.4, Neut # (Auto) 11.6 H, Lymph # (Auto) 1.2, Mcdonough # (Auto) 0.7, Eos # (Auto) 0.1, Baso # (Auto) 0.1, Sodium 140, Potassium 4.1, Chloride 101, Carbon Dioxide 26, Anion Gap 17.1 H, BUN 23 H, Creatinine 1.10, Estimated Creat Clear 87, Estimated GFR 65, Est GFR ( Amer) 79, Glucose 156 H, Calcium 9.6, Total Bilirubin 0.6, AST 37, ALT 34, Alkaline Phosphatase 124, Total Protein 8.0, Albumin 5.2 H, Globulin 2.8, Albumin/Globulin Ratio 1.9 H, Lipase 87 03/30/24 11:31 03/30/24 11:31 Orders (Tests/Meds): ED MEDICATIONS Generic Name Dose Route Start Last Admin Trade Name Freq PRN Reason Stop Dose Admin Sodium Chloride 10 ml 03/30/24 12:42 03/30/24 12:42 Sodium Chloride 0.9% 10ml Syr (Rad Only) IV 04/29/24 12:41 10 ml NEEDED PRN Administration Maintain IV Site Discontinued Medications Generic Name Dose Route Start Last Admin Trade Name Freq PRN Reason Stop Dose Admin Fentanyl Citrate 50 mcg 03/30/24 17:04 03/30/24 17:08 Fentanyl 100mcg/2ml Vial IV 03/30/24 17:05 50 mcg ONCE ONE Administration Sodium Chloride 1,000 mls @ 999 mls/hr 03/30/24 11:37 03/30/24 11:38 Sod Chlor 0.9% 1000ml Bag IV 03/30/24 12:37 999 mls/hr .Q1H1M ONE Administration Iopamidol 75 ml 03/30/24 12:42 03/30/24 12:42 Iopamidol-370 (76%);100ml Bottle IV 03/30/24 12:43 75 ml ONCE ONE Administration ORDERS Category Date Time Status CT abdomen pelvis w con Stat Cat Scan 03/30/24 11:34 Completed CBC w/Auto Diff [Complete Blood Count Auto Diff] Stat Lab 03/30/24 11:31 Completed CMP [Comprehensive Metabolic Panel] Stat Lab 03/30/24 11:31 Completed Lipase Stat Lab 03/30/24 11:31 Completed Urinalysis and Microscopic Stat Lab 03/30/24 11:34 Ordered Medical Decision Narrative: In summary, this is a 73-year-old male presenting with abdominal pain and constipation. Patient states he has not had a bowel movement in 2 to 3 days. Patient and attempted an enema at home which was unsuccessful. Differential diagnosis includes but is not limited to, constipation, bowel obstruction, urinary obstruction/UTI, among others. Patient appears uncomfortable on exam and describes fullness and tenderness in the lower abdomen which is not reproduced on exam. Will evaluate patient with labs, CT and give IV fluids. Patient's labs significant for leukocytosis 13.7, no anemia, no thrombocytopenia. CMP significant for anion gap 17.1. CT abdomen/pelvis with IV contrast demonstrates significant stool burden with large stool balls in the rectum. Final radiologic report notes possible proctitis given fat stranding in the distal colon. Will perform medical molasses enema to attempt bowel cleanout. Patient ultimately signed out to oncoming physician pending resolution of large stool burden from enema. <Alize Rodriguez, DO - Last Filed: 03/30/24 17:51> Vital Signs: 03/30/24 11:19 03/30/24 11:28 03/30/24 11:30 Temperature 97.8 F Temperature Source Oral Pulse Rate 87 80 Pulse Rate [Radial] 89 Respiratory Rate 16 Blood Pressure 116/71 147/69 H Blood Pressure [Right Arm] 116/70 Blood Pressure Mean [Right Arm] 85 Blood Pressure Source [Right Arm] Automatic Cuff Blood Pressure Position [Right Arm] Sitting 02 Sat by Pulse Oximetry 98 96 95 Oxygen Delivery Method Room Air Room Air Room Air 03/30/24 13:18 03/30/24 13:30 03/30/24 17:09 Temperature Temperature Source Pulse Rate 65 63 78 Pulse Rate [Radial] Respiratory Rate Blood Pressure 119/51 L 121/45 L 112/77 Blood Pressure [Right Arm] Blood Pressure Mean [Right Arm] Blood Pressure Source [Right Arm] Blood Pressure Position [Right Arm] 02 Sat by Pulse Oximetry 99 97 98 Oxygen Delivery Method Room Air Room Air Room Air 03/30/24 17:31 Temperature Temperature Source Pulse Rate 60 Pulse Rate [Radial] Respiratory Rate Blood Pressure 131/56 L Blood Pressure [Right Arm] Blood Pressure Mean [Right Arm] Blood Pressure Source [Right Arm] Blood Pressure Position [Right Arm] 02 Sat by Pulse Oximetry 97 Oxygen Delivery Method Room Air Lab Data Lab Results 03/30/24 11:31: WBC 13.7 H, RBC 4.85, Hgb 15.4, Hct 45.0, MCV 92.8, MCH 31.8 H, MCHC 34.2, RDW 13.0, Plt Count 267, MPV 9.3, Neut % (Auto) 84.9 H, Lymph % (Auto) 8.5 L, Mcdonough % (Auto) 5.4, Eos % (Auto) 0.4, Baso % (Auto) 0.4, Neut # (Auto) 11.6 H, Lymph # (Auto) 1.2, Mcdonough # (Auto) 0.7, Eos # (Auto) 0.1, Baso # (Auto) 0.1, Sodium 140, Potassium 4.1, Chloride 101, Carbon Dioxide 26, Anion Gap 17.1 H, BUN 23 H, Creatinine 1.10, Estimated Creat Clear 87, Estimated GFR 65, Est GFR ( Amer) 79, Glucose 156 H, Calcium 9.6, Total Bilirubin 0.6, AST 37, ALT 34, Alkaline Phosphatase 124, Total Protein 8.0, Albumin 5.2 H, Globulin 2.8, Albumin/Globulin Ratio 1.9 H, Lipase 87 Orders (Tests/Meds): ED MEDICATIONS Generic Name Dose Route Start Last Admin Trade Name Freq PRN Reason Stop Dose Admin Sodium Chloride 10 ml 03/30/24 12:42 03/30/24 12:42 Sodium Chloride 0.9% 10ml Syr (Rad Only) IV 04/29/24 12:41 10 ml NEEDED PRN Administration Maintain IV Site Discontinued Medications Generic Name Dose Route Start Last Admin Trade Name Freq PRN Reason Stop Dose Admin Fentanyl Citrate 50 mcg 03/30/24 17:04 03/30/24 17:08 Fentanyl 100mcg/2ml Vial IV 03/30/24 17:05 50 mcg ONCE ONE Administration Sodium Chloride 1,000 mls @ 999 mls/hr 03/30/24 11:37 03/30/24 11:38 Sod Chlor 0.9% 1000ml Bag IV 03/30/24 12:37 999 mls/hr .Q1H1M ONE Administration Iopamidol 75 ml 03/30/24 12:42 03/30/24 12:42 Iopamidol-370 (76%);100ml Bottle IV 03/30/24 12:43 75 ml ONCE ONE Administration ORDERS Category Date Time Status CT abdomen pelvis w con Stat Cat Scan 03/30/24 11:34 Completed CBC w/Auto Diff [Complete Blood Count Auto Diff] Stat Lab 03/30/24 11:31 Completed CMP [Comprehensive Metabolic Panel] Stat Lab 03/30/24 11:31 Completed Lipase Stat Lab 03/30/24 11:31 Completed Urinalysis and Microscopic Stat Lab 03/30/24 11:34 Ordered Medical Decision Narrative: In summary, this is a 73-year-old male presenting with abdominal pain and constipation. Patient states he has not had a bowel movement in 2 to 3 days. Patient and attempted an enema at home which was unsuccessful. Differential diagnosis includes but is not limited to, constipation, bowel obstruction, urinary obstruction/UTI, among others. Patient appears uncomfortable on exam and describes fullness and tenderness in the lower abdomen which is not reproduced on exam. Will evaluate patient with labs, CT and give IV fluids. Patient's labs significant for leukocytosis 13.7, no anemia, no thrombocytopenia. CMP significant for anion gap 17.1. CT abdomen/pelvis with IV contrast demonstrates significant stool burden with large stool balls in the rectum. Final radiologic report notes possible proctitis given fat stranding in the distal colon. Will perform medical molasses enema to attempt bowel cleanout. Patient ultimately signed out to oncoming physician pending resolution of large stool burden from enema. DO Michael: I assumed care of the patient at 1500. Enema was nonsuccessful. He had encopresis around the very large stool ball but was not able to have a good bowel movement. Given this, he consented and I attempted manual disimpaction with my fingers. I was able to get out several large balls of stool, but patient then requested that I stop because he could not tolerate it anymore secondary to rectal pain. I did give him 50 mg of IV fentanyl for procedure/pain, but he stated he still did not feel like continuing. He has not been able to urinate secondary to this fecal impaction and has proctitis on CT, so I feel he would benefit from admission for cleanout and further evaluation and management. I then had an interactive discussion with the hospitalist who admitted the patient in stable condition. Critical Care <Jordyn Duran MD - Last Filed: 03/30/24 15:45> Critical Care Time Critical Care Time: No
[2024-03-30 11:46] LABS: Alanine Aminotransferase 34 U/L (12-78); Albumin Level 5.2 g/dl (3.5-5.0); Albumin/Globulin Ratio 1.9 (1.1-1.8); Alkaline Phosphatase 124 U/L (38-126); Anion Gap 17.1 mEq/L (5-15); Aspartate Amino Transferase 37 U/L (17-59); Bilirubin,Total 0.6 mg/dl (0.2-1.3); Blood Urea Nitrogen 23 mg/dl (9-20); Calcium 9.6 mg/dl (8.4-10.2); Carbon Dioxide 26 mmol/L (22.0-30.0); Chloride 101 mmol/L (98-107); Creatinine Clearance Estimated 87 mL/min (50-200); Estimated Glomerular Filt Rate 65 ml/min (>60); GFR (African American) 79 ML/MIN (>60); Globulin 2.8 g/dL (1.3-3.2); Glucose 156 mg/dl (74-100); Lipase 87 U/L (23-300); Potassium 4.1 mmoL/L (3.5-5.1); Sodium 140 mmol/L (136-145)
--- NOTE | 2024-03-30 11:50 | PC.NURSE ---
Patient assisted back to room.
--- NOTE | 2024-03-30 12:24 | PC.NURSE ---
PT TO CT
[2024-03-30] MEDS: SODIUM CHLORIDE 0.9% 10ML SYR (RAD ONLY) 10 ML IV (12:42)
[2024-03-30] MEDS: IOPAMIDOL-370 (76%);100ML BOTTLE 75 ML IV (12:42)
--- NOTE | 2024-03-30 12:46 | PC.NURSE ---
Pt family requested warm blanket, given to them.
--- NOTE | 2024-03-30 13:18 | PC.NURSE ---
Rounded on patient. Hooked up to VS. States he is feeling better but still feels pressure at his rectum.
--- NOTE | 2024-03-30 13:36 | PC.NURSE ---
ROUNDED ON PT HE WAS LAYING IN BED LET HIM KNOW WE ARE STILL WAITING ON UA AND HE WAS STILL UNABLE TO VOID AT THIS TIME
--- NOTE | 2024-03-30 13:56 | PC.NURSE ---
PT ASSISTED TO BSC
--- NOTE | 2024-03-30 15:08 | PC.NURSE ---
PT IS STILL TRYING TO USE BEDSIDE COMMODE AT THIS TIME
--- NOTE | 2024-03-30 16:26 | PC.NURSE ---
PT IS UP TO BEDSIDE COMMODE TRYING TO HAVE BM, CALL LIGHT IN REACH
--- NOTE | 2024-03-30 16:50 | PC.NURSE ---
i WENT BEDSIDE WITH TO DIGITALLY DISIMPACT THE PT. SHE REMOVED 4 MEDIUM SIZE STOOL BALLS. PT STATES HE CAN NOT TAKE ANYMORE SO SHE WAS UNABLE TO COMPLETE THE DISIMPACTION.
[2024-03-30] MEDS: FENTANYL 100MCG/2ML VIAL 50 MCG IV (17:08)
--- NOTE | 2024-03-30 17:25 | PC.NURSE ---
SPOKE WITH THE HOSPITALIST WHO AGREES TO ADMIT THE PT.
--- NOTE | 2024-03-30 17:28 | PC.NURSE ---
[employer]EL[employer] NOTIFIED OF ADMISSION
--- NOTE | 2024-03-30 17:40 | PC.NURSE ---
Report given to DILEEP Barnes.
--- NOTE | 2024-03-30 17:43 | PC.NURSE ---
Bladder scan performed per Med Surg request. 666ml in bladder. Dr. Rodriguez made aware, no new orders.
--- NOTE | 2024-03-30 19:13 | P.HP_ITS ---
<Statement entered by Donny Carbone MD - 03/31/24 14:14> Personally interviewed, examined patient and agree with plan of care as outlined by the VASCULAR NEUROLOGIST. History of Present Illness *Admission Date: 03/30/24 *Reason for visit:: Abdominal pain *History of present illness: This is a 73-year-old male who has a past medical history significant for coronary hearing, hypertension, GERD, COVID-19, CVA, strain of the lumbar region, diabetes, and gout who presents with a chief complaint of abdominal pain. The patient's symptoms, he presented to the emergency room for evaluation. While in the emergency room, CT scan of the abdomen pelvis revealed a moderate stool burden particularly in the rectum findings consistent with mild proctitis. Due to these findings, patient has been admitted for further management. During my evaluation of the patient, patient states he had a 3-day history of abdominal pain that started to have cramping today. States his pain was 10 out of 10 and in the lower region of his abdomen. He voices he has not had a bowel movement in the past 3 days and attempted to use an enema without any success. Patient states that this did happen before to him in 2020. However, he did not require any hospitalization. Patient states he is also has an inability to urinate since he has been in the hospital. 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 Bladder scan performed in the emergency room shows 600 mL of volume in the bladder. He is currently denying any hematochezia, hematemesis, melenic stool, chest pain, shortness of breath, lightheadedness, dizziness, fever, chills, rigors, nausea, vomiting, or diarrhea. Additional pertinent vitals obtained include a white blood cell count of 13.7, neutrophils 84.9%, BUN 23, blood glucose 156, and albumin of 5.2. [facility] Disclaimer: The information contained in this section may have been updated after the patient was seen, as this information can be updated by other users. Medical History SNHL (sensorineural hearing loss) mild to moderate severe SNHL bilaterally per Audiometric Dysfunction of right eustachian tube Ringing in the ears Inflammation of eustachian tube Hearing loss Impacted cerumen of right ear Diabetes mellitus Gout Surgical History History of tonsillectomy H/O neck surgery History of cholecystectomy Family History Mother Coronary artery disease Father Cancer Alcoholism Social History Smoking Status: Never smoker alcohol intake: former (socially) substance use type: denies use current occupational status: other Travel in the last 8 weeks: None household members: other housing: other Have you lived/traveled outside US in past 30 days?: No Contact w/someone who lives/traveled outside US past 30 days?: No Exposure to someone with infectious disease in past 14 days?: No Do you have a fever (greater than 100.4 F or 38 C)?: No Have you tested positive for COVID-19: No Exposed to someone with COVID-19 in past 14 days?: No Do you have a sore throat?: No Do you have a cough?: No Do you have any weakness?: No Do you have any diarrhea?: No Are you experiencing any unusual bleeding?: No Do you have any muscle aches/pain?: No Do you have any abdominal pain?: No Are you experiencing loss of taste or smell?: No Other Medical History Have you received the Flu Vaccine for this season: Yes Have you received the Pneumonia Vaccine: No Review of Systems Review of Systems Review of systems:: pertinent systems reviewed and negative unless documented below Constitutional Constitutional: Reports system reviewed and no additional complaints, except as documented Eyes Eyes: Reports system reviewed and no additional complaints, except as documented ENT Ears, Nose, Mouth, and Throat: Reports system reviewed and no additional complaints, except as documented *Cardiovascular Cardiovascular: Reports system reviewed and no additional complaints, except as documented *Respiratory Respiratory: Reports system reviewed and no additional complaints, except as documented *Gastrointestinal Gastrointestinal: Reports abdominal pain, Reports bloating and Reports constipation *Genitourinary Genitourinary: Reports difficulty urinating *Musculoskeletal Musculoskeletal: Reports system reviewed and no additional complaints, except as documented Integumentary/Breasts Skin/Breast: Reports system reviewed and no additional complaints, except as documented *Neurologic Neurologic: Reports system reviewed and no additional complaints, except as documented Psychiatric Psychiatric: Reports system reviewed and no additional complaints, except as documented Endocrine Endocrine: Reports system reviewed and no additional complaints, except as documented Hematologic/Lymphatic Hematologic/Lymphatic: Reports system reviewed and no additional complaints, except as documented Allergic/Immunologic Allergic/Immunologic: Reports system reviewed and no additional complaints, except as documented Meds Home Medications and Allergies Home Medications ?Medication ?Instructions ?Recorded ?Confirmed ?Type aspirin 81 mg tablet,delayed 81 mg PO DAILY HEART 08/03/18 03/30/24 History release garlic 1 each PO DAILY Supplement 08/03/18 03/30/24 History omega-3 fatty acids-fish oil 300 2 each PO DAILY Supplement 08/03/18 03/30/24 History mg-1,000 mg capsule zinc acetate 50 mg (zinc) capsule 50 mg PO DAILY 10/16/21 03/30/24 History allopurinol 300 mg tablet 300 mg PO DAILY GOUT #90 tabs 05/03/23 03/30/24 Rx colchicine 0.6 mg tablet (Colcrys) 0.6 mg PO DAILY PRN GOUT 05/03/23 03/30/24 History azelastine 137 mcg (0.1 %) nasal 1 spray intranasal DAILY 30 days 06/07/23 03/30/24 Rx spray #30 mL meclizine 12.5 mg tablet 12.5 mg PO TID PRN dizziness #30 08/16/23 03/30/24 Rx tabs magnesium oxide 400 mg (241.3 mg See Rx Instructions .Route 10/07/23 03/30/24 Rx magnesium) tablet .COMPLEX #90 tabs clopidogrel 75 mg tablet 75 mg PO DAILY Blood thinner #90 11/22/23 03/30/24 Rx tabs amlodipine 5 mg tablet See Rx Instructions .Route 12/15/23 03/30/24 Rx .COMPLEX #90 tabs gabapentin 300 mg capsule 300 mg PO TID #90 caps 01/31/24 03/30/24 Rx esomeprazole magnesium 40 mg See Rx Instructions .Route 02/16/24 03/30/24 Rx capsule,delayed release .COMPLEX #30 caps amoxicillin 500 mg tablet 500 mg PO TID #30 tabs 03/07/24 03/30/24 Rx hydrochlorothiazide 25 mg tablet See Rx Instructions .Route 03/26/24 03/30/24 Rx .COMPLEX #90 tabs lisinopril 20 mg tablet See Rx Instructions .Route 03/26/24 03/30/24 Rx .COMPLEX #180 tabs New Prescriptions to Start Prescriptions: Allergies Allergy/AdvReac Type Severity Reaction Status Date / Time Sulfa (Sulfonamide Allergy Unknown Verified 02/06/24 10:23 Antibiotics) Exam Data for Last 24 hours Vital signs and Labs for Last 24 Hours: Temp Pulse Resp BP Pulse Ox O2 Del Method 98.4 F 60 18 168/86 H 96 Room Air 03/30/24 18:28 03/30/24 18:28 03/30/24 18:28 03/30/24 18:28 03/30/24 18:28 03/30/24 19:00 Laboratory Results - last 24 hr 03/30/24 11:31: WBC 13.7 H, RBC 4.85, Hgb 15.4, Hct 45.0, MCV 92.8, MCH 31.8 H, MCHC 34.2, RDW 13.0, Plt Count 267, MPV 9.3, Neut % (Auto) 84.9 H, Lymph % (Auto) 8.5 L, [place] % (Auto) 5.4, Eos % (Auto) 0.4, Baso % (Auto) 0.4, Neut # (Auto) 11.6 H, Lymph # (Auto) 1.2, [place] # (Auto) 0.7, Eos # (Auto) 0.1, Baso # (Auto) 0.1, Sodium 140, Potassium 4.1, Chloride 101, Carbon Dioxide 26, Anion Gap 17.1 H, BUN 23 H, Creatinine 1.10, Estimated Creat Clear 87, Estimated GFR 65, Est GFR ( Amer) 79, Glucose 156 H, Calcium 9.6, Total Bilirubin 0.6, AST 37, ALT 34, Alkaline Phosphatase 124, Total Protein 8.0, Albumin 5.2 H, Globulin 2.8, Albumin/Globulin Ratio 1.9 H, Lipase 87 I & O for Last 24 hours: Intake & Output 03/27/24 03/28/24 03/29/24 03/30/24 23:59 23:59 23:59 23:59 Weight 99.96 kg Constitutional Constitutional: no acute distress and cooperative *Routine HEENT Exam Head: Present normocephalic Eye: Present EOMI ENT: Present mucous membranes moist *Routine Neck Exam Neck: Present supple and full ROM *Routine Respiratory Exam Respiratory: Present normal respiratory effort, able to speak in complete sentences and symmetric chest movement *Routine Cardiovascular Exam Cardiovascular: Present RRR, Normal S1 and Normal S2 *Routine Abdominal Exam Abdominal: Present soft *Routine Rectal Exam Rectal:: deferred *Routine Genitalia Exam Genitalia:: deferred *Routine Extremities Exam Extremities: Present full ROM, pulses intact and normal capillary refill Routine Back/Spine/Pelvis Exam Back/Spine: Present full ROM *Routine Skin Exam Skin: Present intact, dry, warm and normal turgor *Routine Neurological Exam Neurological: Present alert, CN II-XII intact and moving all extremities Routine Psychiatric Exam Psychiatric: Present normal affect, normal thought process, cooperative, good insight and good judgment H&P: Result Impressions This is a 73-year-old male who presents with a chief complaint of abdominal pain that progressively got worse over [address] findings of the abdomen pelvis was consistent with constipation and acute proctitis. Review of patient's medications shows that he is prescribed gabapentin and hydrochlorothiazide. Constipation may be medication induced. Assessment and Plan *Assessment and plan (1) Acute proctitis: Status: Acute Category: Medical Code(s): K62.89 - Other specified diseases of anus and rectum (2) Fecal impaction: Status: Acute Category: Medical Code(s): K56.41 - Fecal impaction (3) Acute urinary retention: Status: Acute Category: Medical Code(s): R33.8 - Other retention of urine Plan Assessment: Acute proctitis -Will give subset enemas twice daily until patient has a healthy bowel movement -Will give Zosyn 3.375 g every 6 hours IV Fecal impaction -Will manually disimpact this necessary -Will start 100 mg of Colace p.o. twice daily -Will consider titrating down patient's gabapentin Urinary retention -Will straight cath x 1 -Will BladderScan in 8 hours and if volumes greater than 400 we will consider Flomax -Will consider PSA -If patient cannot void after second time in addition to Flomax, will consider indwelling De La Cruz catheter Leukocytosis with left shift -Will give antibiotics as above -Will monitor CBC daily -Will obtain blood cultures if patient starts having fever Plan: Admit patient to the [facility] unit Activity as tolerated SCDs to bilateral lower extremity Vital signs every shift Cardiac diet CBC/BMP daily Normal saline at 75 mL an hour 5 mg [place] p.o. every 4 hours PMR pain 4 mg Zofran IV push. Hours. Nausea from Full code I will discuss this case with attending physician Dr. Carbone and a look forward to more input
[2024-03-30] MEDS: MORPHINE 2MG/ML SYRINGE 2 MG IV (20:53)
[2024-03-30] MEDS: HYDROCODONE/APAP 5/325 MG TABLET 1 TAB PO (22:17)
[2024-03-30] MEDS: HYDROMORPHONE 2MG/ML SYRINGE 0.5 MG IV (23:11)
[2024-03-30] MEDS: LIDOCAINE 2% UROJET 10ML 10 ML UR ×2 (23:25→23:56)
[2024-03-30 23:30] LABS: Microscopic, Urine URINE MICROSCOPIC (MICROSCOPIC)
[2024-03-30 23:31] LABS: Appearance,Urine CLOUDY (Clear); Bilirubin,Urine Negative (Negative); Blood, Urine 3+ (Negative); Color,Urine DARK YELLOW (Yellow); Glucose,Urine (UA) Negative (Negative); Ketones,Urine TRACE (Negative); Leukocyte Esterase,Urine Negative (Negative); Nitrate,Urine Negative (Negative); Protein,Urine TRACE (Negative); Specific Gravity, Urine 1.025 (1.005-1.030)
[2024-03-30 23:45] LABS: RBC,Urine 50-100 #/hpf (0-3); Squamous Epithelial Cell,Urine Occasional #/hpf (0-5)
[2024-03-30] MEDS: 0.9 % SODIUM CHLORIDE 1000ML 1,000 ML 75 ML IV (23:55)
[2024-03-30] MEDS: PIPERACILLIN/TAZO 3.375 GM in 0.9 % SODIUM CHLORIDE 50 ML IV (23:56)
[2024-03-31] VITALS: BP 115/56; PULSE 64; RESP 17; TEMP 36.9; O2SAT 93
[2024-03-31] MEDS: PIPERACILLIN/TAZO 3.375 GM in 0.9 % SODIUM CHLORIDE 50 ML IV ×4 (02:11→20:26)
--- NOTE | 2024-03-31 02:17 | PC.NURSE ---
attempted to insert straight cath but was unable to get urine to drain. Rachel attempted and was also unsuccessful. loading supervisor notified and attempted a Coude catheter and was unsuccessful. Hospitalist John Horan arrived and bedside and was able to get a 22 fr coude on second attempt. 900 ml out. Urine sample sent to lab.
[2024-03-31 04:00] VITALS: BP 121/64; PULSE 82; RESP 18; TEMP 37.1; O2SAT 95; BMI 31.2
--- NOTE | 2024-03-31 04:22 | PC.NURSE ---
Pt A&OX4 and has tolerated room air. Lung sounds clear and bowel sounds active. Pt has not had a bowel movement this shift. De La Cruz cath has remained in place and draining well. Ns running @75 ml/hr. Resting in bed with call light within reach.
[2024-03-31 06:00] LABS: Basophils % 0.2 % (0.1-2.0); Eosinophils % 0.2 % (0.1-12.0); Hematocrit 37.3 % (42.0-52.0); Lymphocytes # 1.1 K/mm3 (0.7-4.5); Mean Corpuscular Hemoglobin 31.4 pg (27.0-31.2); Mean Corpuscular Volume 92.3 fl (80-94); Mean Platelet Volume 9.1 fl (7.4-10.4); Monocytes # 1.2 K/mm3 (0.1-1.0); Neutrophils # 9.9 K/mm3 (1.8-7.8); Neutrophils % 80.4 % (37.0-80.0); Platelet Count 201 K/mm3 (142-424); Red Blood Count 4.04 M/mm3 (4.60-6.20); Red Cell Distribution Width 13.1 % (11.5-17.5); White Blood Count 12.3 K/mm3 (4.8-10.8)
[2024-03-31 06:03] LABS: Chloride 105 mmol/L (98-107); Potassium 3.8 mmoL/L (3.5-5.1); Sodium 139 mmol/L (136-145)
[2024-03-31 06:05] LABS: Hemoglobin 12.7 g/dL (14.1-18.0)
[2024-03-31 06:06] LABS: Anion Gap 12.8 mEq/L (5-15); Blood Urea Nitrogen 19 mg/dl (9-20); Calcium 8.3 mg/dl (8.4-10.2); Carbon Dioxide 25 mmol/L (22.0-30.0); Creatinine Clearance Estimated 93 mL/min (50-200); Estimated Glomerular Filt Rate 94 ml/min (>60); GFR (African American) 114 ML/MIN (>60); Glucose 126 mg/dl (74-100)
[2024-03-31 08:00] VITALS: BP 133/70; PULSE 66; RESP 20; TEMP 36.7; O2SAT 96
[2024-03-31] MEDS: HYDROCODONE/APAP 5/325 MG TABLET 1 TAB PO (08:35)
[2024-03-31] MEDS: DOCUSATE SODIUM 100 MG CAPSULE PO (08:35)
--- NOTE | 2024-03-31 09:36 | PC.NURSE ---
called abimael with pt, spoke about consult.
--- NOTE | 2024-03-31 09:39 | HMH.PHAINT1 ---
Pharmacy Intervention Comments: MEDICATION RECONCILIATION COMPLETE USING LIST FROM RECENT MD OFFICE VISIT (01/2024) AND EXTERNAL PHARMACY FILL HISTORY.
[2024-03-31] MEDS: POLYETHYLENE GLYCOL 3350 17 GM PACKET PO (09:42)
[2024-03-31] MEDS: BISACODYL 5MG TABLET 10 MG PO (09:43)
[2024-03-31] MEDS: LIDOCAINE 5% OINTMENT 35GM TUBE 35 GM TP (13:10)
--- NOTE | 2024-03-31 14:51 | EXP.DC.SUM ---
General Admission date:: 03/30/24 Discharged on 04/01/2024. Discharge date: 04/01/24 HPI HPI HPI: This is a 73-year-old male who has a past medical history significant for coronary hearing, hypertension, GERD, COVID-19, CVA, strain of the lumbar region, diabetes, and gout who presents with a chief complaint of abdominal pain. The patient's symptoms, he presented to the emergency room for evaluation. While in the emergency room, CT scan of the abdomen pelvis revealed a moderate stool burden particularly in the rectum findings consistent with mild proctitis. Due to these findings, patient has been admitted for further management. During my evaluation of the patient, patient states he had a 3-day history of abdominal pain that started to have cramping today. States his pain was 10 out of 10 and in the lower region of his abdomen. He voices he has not had a bowel movement in the past 3 days and attempted to use an enema without any success. Patient states that this did happen before to him in 2020. However, he did not require any hospitalization. Patient states he is also has an inability to urinate since he has been in the hospital. 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 Bladder scan performed in the emergency room shows 600 mL of volume in the bladder. He is currently denying any hematochezia, hematemesis, melenic stool, chest pain, shortness of breath, lightheadedness, dizziness, fever, chills, rigors, nausea, vomiting, or diarrhea. Additional pertinent vitals obtained include a white blood cell count of 13.7, neutrophils 84.9%, BUN 23, blood glucose 156, and albumin of 5.2. Hospital Course Hospital Course Hospital Course: Donny Vigil is a 73-year-old male who presented with abdominal pain and admitted with fecal impaction, stercoral colitis, urinary retention. #Stercoral colitis #Fecal impaction ? CT abdomen/pelvis reveals mild proctitis with moderate stool burden. ? Clinically improved with serial enemas, oral MiraLAX with multiple bowel movements. ? Treated with Zosyn for 3 days. ? Discharged with MiraLAX daily, and bisacodyl and glycerin as needed. Encouraged staying hydrated with free water. #Urinary retention ? De La Cruz catheter removed with appropriate urinary output. ? Continue tamsulosin 0.8 mg. Will need further evaluation by PCP for possible BPH. #History of CVA ? Resume home Plavix, statin. #Hypertension ? Resume home lisinopril, amlodipine. ? Hold hydrochlorothiazide given history of dehydration, and BP stable without it. Tamsulosin also started above. Full code DVT prophylaxis: Lovenox 40 mg Total time spent on discharge: 32 minutes on chart review, counseling, documentation, and direct care with patient. Exam Data for Last 24 hours Vital signs and Labs for Last 24 Hours: Temp Pulse Resp BP Pulse Ox O2 Del Method 98.0 F 66 20 133/70 96 Room Air 03/31/24 08:00 03/31/24 08:00 03/31/24 08:00 03/31/24 08:00 03/31/24 08:00 03/31/24 08:00 Laboratory Results - last 24 hr 03/30/24 23:25: Urine Color Dark yellow, Urine Appearance Cloudy, Urine pH 6.0, Ur Specific [place] 1.025, Urine Protein Trace, Urine Glucose (UA) Negative, Urine Ketones Trace, Urine Blood 3+ A, Urine Nitrate Negative, Urine Bilirubin Negative, Urine Urobilinogen 1.0, Ur Leukocyte Esterase Negative, Urine RBC 50-100, Urine WBC None, Ur Squamous Epith Cells Occasional, Urine Bacteria None 03/31/24 05:52: WBC 12.3 H, RBC 4.04 L, Hgb 12.7 L D, Hct 37.3 L, MCV 92.3, MCH 31.4 H, MCHC 34.0, RDW 13.1, Plt Count 201, MPV 9.1, Neut % (Auto) 80.4 H, Lymph % (Auto) 9.0 L, [place] % (Auto) 10.0 H, Eos % (Auto) 0.2, Baso % (Auto) 0.2, Neut # (Auto) 9.9 H, Lymph # (Auto) 1.1, [place] # (Auto) 1.2 H, Eos # (Auto) 0.0, Baso # (Auto) 0.0, Sodium 139, Potassium 3.8, Chloride 105, Carbon Dioxide 25, Anion Gap 12.8, BUN 19, Creatinine 0.80 D, Estimated Creat Clear 93, Estimated GFR 94, Est GFR ( Amer) 114 D, Glucose 126 H, Calcium 8.3 L I & O for Last 24 hours: Intake & Output 03/28/24 03/29/24 03/30/24 03/31/24 23:59 23:59 23:59 23:59 Intake Total 1215 / 1215 Output Total 1001 / 1001 Balance 214 / 214 Weight 99.96 kg 101.196 kg Constitutional Constitutional: no acute distress *Routine HEENT Exam Head: Present normocephalic Eye: Present EOMI and PERRL ENT: Present mucous membranes moist *Routine Neck Exam Neck: Present supple; Absent lymphadenopathy *Routine Respiratory Exam Respiratory: Present CTA bilaterally *Routine Cardiovascular Exam Cardiovascular: Present RRR *Routine Abdominal Exam Abdominal: Present soft and normoactive bowel sounds; Absent tenderness *Routine Extremities Exam Extremities: Absent cyanosis, clubbing or edema *Routine Skin Exam Skin: Present warm; Absent rash *Routine Neurological Exam Neurological: Present alert and oriented X3 Results Data Completed and Pending Labs on day of discharge: Labs from last 24 hours 03/31/24 03/30/24 05:52 23:25 WBC 12.3 H RBC 4.04 L Hgb 12.7 L D Hct 37.3 L MCV 92.3 MCH 31.4 H MCHC 34.0 RDW 13.1 Plt Count 201 MPV 9.1 Neut % (Auto) 80.4 H Lymph % (Auto) 9.0 L [place] % (Auto) 10.0 H Eos % (Auto) 0.2 Baso % (Auto) 0.2 Neut # (Auto) 9.9 H Lymph # (Auto) 1.1 [place] # (Auto) 1.2 H Eos # (Auto) 0.0 Baso # (Auto) 0.0 Sodium 139 Potassium 3.8 Chloride 105 Carbon Dioxide 25 Anion Gap 12.8 BUN 19 Creatinine 0.80 D Estimated Creat Clear 93 Estimated GFR 94 Est GFR ( Amer) 114 D Glucose 126 H Calcium 8.3 L Urine Color Dark yellow Urine Appearance Cloudy Urine pH 6.0 Ur Specific [place] 1.025 Urine Protein Trace Urine Glucose (UA) Negative Urine Ketones Trace Urine Blood 3+ A Urine Nitrate Negative Urine Bilirubin Negative Urine Urobilinogen 1.0 Ur Leukocyte Esterase Negative Urine RBC 50-100 Urine WBC None Ur Squamous Epith Cells Occasional Urine Bacteria None DS: Diagnosis Discharge Diagnosis (1) Acute proctitis: Status: Acute Code(s): K62.89 - Other specified diseases of anus and rectum (2) Fecal impaction: Status: Acute Code(s): K56.41 - Fecal impaction (3) Acute urinary retention: Status: Acute Code(s): R33.8 - Other retention of urine Meds Home Medications and Allergies Home Medications ?Medication ?Instructions ?Recorded ?Confirmed ?Type aspirin 81 mg tablet,delayed 81 mg PO DAILY 08/03/18 04/04/24 History release garlic 1 each PO DAILY Supplement 08/03/18 04/04/24 History omega-3 fatty acids-fish oil 300 2 each PO DAILY Supplement 08/03/18 04/04/24 History mg-1,000 mg capsule zinc acetate 50 mg (zinc) capsule 50 mg PO DAILY 10/16/21 04/04/24 History colchicine 0.6 mg tablet (Colcrys) 0.6 mg PO DAILYP PRN GOUT 05/03/23 04/04/24 History azelastine 137 mcg (0.1 %) nasal 1 spray intranasal DAILY 30 days 06/07/23 04/04/24 Rx spray #30 mL gabapentin 300 mg capsule 300 mg PO TID #90 caps 01/31/24 04/04/24 Rx allopurinol 300 mg tablet 300 mg PO DAILY 03/31/24 04/04/24 History amlodipine 5 mg tablet 5 mg PO DAILY 03/31/24 04/04/24 History bisacodyl 5 mg tablet,delayed 10 mg (2 x 5 mg) PO DAILY PRN 03/31/24 04/04/24 Rx release Constipation 7 days #14 tabs clopidogrel 75 mg tablet 75 mg PO DAILY 03/31/24 04/04/24 History esomeprazole magnesium 40 mg 40 mg PO DAILY 03/31/24 04/04/24 History capsule,delayed release hydrochlorothiazide 25 mg tablet 25 mg PO DAILY 03/31/24 04/04/24 History lisinopril 20 mg tablet 20 mg PO DAILY 03/31/24 04/04/24 History magnesium oxide 400 mg (241.3 mg 400 mg PO DAILY 03/31/24 04/04/24 History magnesium) tablet polyethylene glycol 3350 17 gram 17 g PO DAILY 30 days #30 ea 03/31/24 04/04/24 Rx oral powder packet (HealthyLax) tamsulosin 0.4 mg capsule 0.8 mg (2 x 0.4 mg) PO HS 30 days 04/01/24 04/04/24 Rx #60 caps New Prescriptions to Start Prescriptions: yuriacodyl Donny Carbone polyethylene glycol 3350 [HealthyLax] Donny Carbone tamsulosin Donny Carbone Allergies Allergy/AdvReac Type Severity Reaction Status Date / Time Sulfa (Sulfonamide Allergy Unknown Verified 04/04/24 07:58 Antibiotics) Discharge Plan Disposition Patient Disposition: Home, Self-Care Condition: Fair Follow up Plan Follow up with: Lance Jarvis MD [Primary Care Provider] - 04/02/24 (please call for a follow up appointment.) Prescriptions/Medication Reconciliation: New polyethylene glycol 3350 [HealthyLax] 17 gram Powder In Packet 17 g PO DAILY 30 Days Qty: 30 0RF bisacodyl 5 mg Tablet,Delayed Release (Dr/Ec) 10 mg PO DAILY PRN (Reason: Constipation) 7 Days Qty: 14 0RF tamsulosin 0.4 mg Capsule 0.8 mg PO HS 30 Days Qty: 60 0RF Continued zinc acetate 50 mg (zinc) capsule 50 mg PO DAILY colchicine [Colcrys] 0.6 mg tablet 0.6 mg PO DAILYP PRN (Reason: GOUT) azelastine 137 mcg (0.1 %) aerosol,spray 1 spray NS DAILY 30 Days Qty: 30 2RF Rx Instructions: administer into each nostril gabapentin 300 mg capsule 300 mg PO TID Qty: 90 2RF aspirin 81 MG tablet,delayed release (DR/EC) 81 mg PO DAILY garlic 1 EACH tablet 1 each PO DAILY omega-3 fatty acids-fish oil 1 EACH capsule 2 each PO DAILY lisinopril 20 mg tablet 20 mg PO DAILY clopidogrel 75 mg tablet 75 mg PO DAILY amlodipine 5 mg tablet 5 mg PO DAILY magnesium oxide 400 mg (241.3 mg magnesium) tablet 400 mg PO DAILY esomeprazole magnesium 40 mg capsule,delayed release(DR/EC) 40 mg PO DAILY allopurinol 300 mg tablet 300 mg PO DAILY Held hydrochlorothiazide 25 mg tablet 25 mg PO DAILY Hold Instructions: Resume on 04/14/24. Hold this medication until you speak to your PCP. This could be causing her dehydration and causing constipation. Problem Reconciliation Problems Reviewed?: Yes Patient Discharge Instructions Additional Instructions: Take MiraLAX twice a day until you have at least 1 bowel movement a day. Then take daily. Take bisacodyl daily, glycerin suppository until you have at least 1 bowel movement a day. Then take as needed. Patient Instructions: DI for Urinary Retention in Men, DI for Fecal Impaction Print Language: Georgian Providers Primary Care Provider: Lance Jarvis Admit Provider: Donny Carbone Attending Provider: Donny Carbone
[2024-03-31] MEDS: CLOPIDOGREL 75MG TAB 75 MG PO (15:03)
[2024-03-31] MEDS: ASPIRIN EC 81MG TABLET 81 MG PO (15:03)
[2024-03-31] MEDS: PANTOPRAZOLE 40MG TABLET 40 MG PO (15:03)
[2024-03-31 16:00] VITALS: BP 140/65; PULSE 76; RESP 18; TEMP 36.6; O2SAT 97
[2024-03-31 19:23] VITALS: BP 130/62; PULSE 66; RESP 17; TEMP 36.7; O2SAT 96
--- NOTE | 2024-03-31 20:08 | PC.NURSE ---
Pt had knutson removed around 1600. Asked pt if he had urinated since it was removed. He said he is unsure if he did when having a BM earlier. Pt bladder scanned revealed 87 ml in bladder. He said he has no urge to go right now.
[2024-03-31] MEDS: 0.9 % SODIUM CHLORIDE 1000ML 1,000 ML 75 ML IV (20:26)
[2024-03-31] MEDS: TAMSULOSIN 0.4MG CAPSULE 0.4 MG PO (20:27)
[2024-03-31] MEDS: FINASTERIDE 5MG TABLET 5 MG PO (20:27)
--- NOTE | 2024-03-31 22:31 | P.PN_ITS ---
Subjective *Date: 03/31/24 *Time: 13:24 Interval history: Has had a few small to moderate bowel movements. De La Cruz catheter removed tonight, however no urinary output. Will monitor overnight. Exam Data for Last 24 hours Vital signs and Labs for Last 24 Hours: Temp Pulse Resp BP Pulse Ox O2 Del Method 98.1 F 66 17 130/62 96 Room Air 03/31/24 19:23 03/31/24 19:23 03/31/24 19:23 03/31/24 19:23 03/31/24 19:23 03/31/24 21:00 Laboratory Results - last 24 hr 03/30/24 23:25: Urine Color Dark yellow, Urine Appearance Cloudy, Urine pH 6.0, Ur Specific [place] 1.025, Urine Protein Trace, Urine Glucose (UA) Negative, Urine Ketones Trace, Urine Blood 3+ A, Urine Nitrate Negative, Urine Bilirubin Negative, Urine Urobilinogen 1.0, Ur Leukocyte Esterase Negative, Urine RBC 50- 100, Urine WBC None, Ur Squamous Epith Cells Occasional, Urine Bacteria None 03/31/24 05:52: WBC 12.3 H, RBC 4.04 L, Hgb 12.7 L D, Hct 37.3 L, MCV 92.3, MCH 31.4 H, MCHC 34.0, RDW 13.1, Plt Count 201, MPV 9.1, Neut % (Auto) 80.4 H, Lymph % (Auto) 9.0 L, [place] % (Auto) 10.0 H, Eos % (Auto) 0.2, Baso % (Auto) 0.2, Neut # (Auto) 9.9 H, Lymph # (Auto) 1.1, [place] # (Auto) 1.2 H, Eos # (Auto) 0.0, Baso # (Auto) 0.0, Sodium 139, Potassium 3.8, Chloride 105, Carbon Dioxide 25, Anion Gap 12.8, BUN 19, Creatinine 0.80 D, Estimated Creat Clear 93, Estimated GFR 94, Est GFR ( Amer) 114 D, Glucose 126 H, Calcium 8.3 L I & O for Last 24 hours: Intake & Output 03/28/24 03/29/24 03/30/24 03/31/24 23:59 23:59 23:59 23:59 Intake Total 1365 / 1365 Output Total 1001 / 1001 Balance 364 / 364 Weight 99.96 kg 101.196 kg Constitutional Constitutional: no acute distress *Routine HEENT Exam Head: Present normocephalic Eye: Present EOMI and PERRL ENT: Present mucous membranes moist *Routine Neck Exam Neck: Present supple; Absent lymphadenopathy *Routine Respiratory Exam Respiratory: Present CTA bilaterally *Routine Cardiovascular Exam Cardiovascular: Present RRR *Routine Abdominal Exam Abdominal: Present soft and normoactive bowel sounds; Absent tenderness *Routine Extremities Exam Extremities: Absent cyanosis, clubbing or edema *Routine Skin Exam Skin: Present warm; Absent rash *Routine Neurological Exam Neurological: Present alert and oriented X3 Assessment and Plan *Assessment and plan (1) Acute urinary retention: Status: Acute Category: Medical Code(s): R33.8 - Other retention of urine (2) Fecal impaction: Status: Acute Category: Medical Code(s): K56.41 - Fecal impaction Plan Donny Vigil is a 73-year-old male who presented with abdominal pain and admitted with fecal impaction, stercoral colitis, urinary retention. #Stercoral colitis #Fecal impaction ? CT abdomen/pelvis reveals mild proctitis with moderate stool burden. ? Initiated on serial enemas, oral MiraLAX with small to moderate bowel movements. ? Continue Zosyn, serial enemas, MiraLAX. ? Encouraged generous oral fluid intake. #Urinary retention ? De La Cruz catheter removed this evening without urinary event yet. Will monitor overnight. ? Continue tamsulosin 0.8 mg. #History of CVA ? Resume home Plavix, statin. #Hypertension ? Resume home lisinopril, amlodipine. ? Hold hydrochlorothiazide given dehydration. Full code DVT prophylaxis: Lovenox 40 mg
--- NOTE | 2024-03-31 23:53 | PC.NURSE ---
Pt attempted to urinate but was only able to get a small amount out. Pt stated it burned and was dark in color. Bladder check post void was 193. Hospitalist notified.
[2024-04-01] MEDS: TAMSULOSIN 0.4MG CAPSULE 0.4 MG PO (00:17)
[2024-04-01] MEDS: PIPERACILLIN/TAZO 3.375 GM in 0.9 % SODIUM CHLORIDE 50 ML IV ×2 (00:17→06:46)
--- NOTE | 2024-04-01 03:42 | PC.NURSE ---
Pt got up to void and had little output. Bladder scan revealed 279ml. Hospitalist notified. No orders at this time.
[2024-04-01 04:00] VITALS: BP 130/66; PULSE 69; RESP 18; TEMP 37.4; O2SAT 93; BMI 31.2
[2024-04-01 08:00] VITALS: BP 133/65; PULSE 69; RESP 18; TEMP 36.5; O2SAT 95
--- NOTE | 2024-04-01 08:06 | PC.NURSE ---
Pt able to void this morning. Pt stated he was just hesitant because of the pain from having a knutson placed yesterday. notified, pt to d/c.
[2024-04-01] MEDS: ASPIRIN EC 81MG TABLET 81 MG PO (09:11)
[2024-04-01] MEDS: POLYETHYLENE GLYCOL 3350 17 GM PACKET PO (09:11)
[2024-04-01] MEDS: BISACODYL 5MG TABLET 10 MG PO (09:11)
[2024-04-01] MEDS: PANTOPRAZOLE 40MG TABLET 40 MG PO (09:11)
[2024-04-01] MEDS: CLOPIDOGREL 75MG TAB 75 MG PO (09:11)
--- NOTE | 2024-04-02 10:29 | SW/DCPLANNER ---
Spoke with patients on the phone. Patients stated that he seems to be doing well. Patients stated that he has an appointment with his primary care provider Tuesday. 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 Patients stated that they have no concerns or questions at this time. Monika Low
== END 2024-04-01 10:25 | disposition home or self-care (01) ==
LOC: ER 12:05 → 2ND 17:50
PROVIDERS: Nurse Practitioner Family; Admitting Provider Student in an Organized Health Care Education/Training Program; Emergency Provider Student in an Organized Health Care Education/Training Program; PCP Family Medicine; Visit Provider Student in an Organized Health Care Education/Training Program
DX: K62.89 Other specified diseases of anus and rectum (principal); K56.41 Fecal impaction; R33.8 Other retention of urine; I10 Essential (primary) hypertension; E11.9 Type 2 diabetes mellitus without complications; K21.9 Gastro-esophageal reflux disease without esophagitis; M1A.9XX0 Chronic gout, unspecified, without tophus (tophi); Z79.02 Long term (current) use of antithrombotics/antiplatelets; Z79.82 Long term (current) use of aspirin; Z79.899 Other long term (current) drug therapy
CPT/HCPCS: 74177; 80048; 80053; 81001; 83690; 85025; 99285; G0378; J1171; J2270; J2543; J3010; J7030; Q9967

== ENCOUNTER 2024-07-19 06:16 | Day surgery (SDC) | payer MEDICARE, SELFPAY ==
[2024-07-17 10:20] VITALS: BMI 32.1
[2024-07-19] VITALS (8 sets, daily range): BP systolic 94–150; BP diastolic 58–81; PULSE 50–67; RESP 16; TEMP 36.1–36.8; O2SAT 95–98
[2024-07-19] MEDS: LACTATED RINGERS 1000ML 1,000 ML 50 ML IV (07:25)
--- NOTE | 2024-07-19 07:56 | EXP.HP ---
History of Present Illness *Admission Date: 07/19/24 *Reason for visit:: Incomplete defecation *History of present illness: Mr. Vigil is a 73-year-old gentleman with some change in bowel habits, constipation and incomplete defecation who is here for diagnostic colonoscopy. His last colonoscopy was 14 years ago. The examination is deemed medically necessary for diagnostic colonoscopy. The patient has been seen, interviewed and examined prior to the procedure by both myself and the anesthesia provider. [facility] Disclaimer: The information contained in this section may have been updated after the patient was seen, as this information can be updated by other users. Medical History (Updated 07/19/24 @ 07:58 by Garo Ziegler II, MD) Acute proctitis Ear pain Colon cancer screening Abdominal pain Testicular pain COVID-19 Viral syndrome Strain of lumbar region Constipation SNHL (sensorineural hearing loss) Dysfunction of right eustachian tube Ringing in the ears Inflammation of eustachian tube Hearing loss Impacted cerumen of right ear Gout Surgical History History of tonsillectomy H/O neck surgery History of cholecystectomy Family History Mother Coronary artery disease Father Cancer Alcoholism Social History Smoking Status: Never smoker alcohol intake: former (socially) substance use type: denies use current occupational status: other Travel in the last 8 weeks?: None household members: other housing: other Have you lived/traveled outside US in past 30 days?: No Contact w/someone who lives/traveled outside US past 30 days?: No Exposure to someone with infectious disease in past 14 days?: No Do you have a fever (greater than 100.4 F or 38 C)?: No Have you tested positive for COVID-19?: No Exposed to someone with COVID-19 in past 14 days?: No Do you have a sore throat?: No Do you have a cough?: No Do you have any weakness?: No Do you have any diarrhea?: No Are you experiencing any unusual bleeding?: No Do you have any muscle aches/pain?: No Do you have any abdominal pain?: No Are you experiencing loss of taste or smell?: No Other Medical History Have you received the Flu Vaccine for this season: No Have you received the Pneumonia Vaccine: Yes Review of Systems Review of Systems Review of systems (narrative): Negative *Cardiovascular Comments: Negative *Gastrointestinal Comments: Negative *Genitourinary Comments: Negative *Musculoskeletal Comments: Negative *Neurologic Comments: Negative Meds Home Medications and Allergies Home Medications ?Medication ?Instructions ?Recorded ?Confirmed ?Type aspirin 81 mg tablet,delayed 81 mg PO DAILY 08/03/18 07/19/24 History release garlic 1 each PO DAILY Supplement 08/03/18 07/19/24 History omega-3 fatty acids-fish oil 300 2 each PO DAILY Supplement 08/03/18 07/19/24 History mg-1,000 mg capsule colchicine 0.6 mg tablet (Colcrys) 0.6 mg PO DAILYP PRN GOUT 05/03/23 07/19/24 History amlodipine 5 mg tablet 5 mg PO DAILY 03/31/24 07/19/24 History bisacodyl 5 mg tablet,delayed 10 mg (2 x 5 mg) PO DAILY PRN 03/31/24 07/19/24 Rx release Constipation 7 days #14 tabs magnesium oxide 400 mg (241.3 mg 400 mg PO DAILY 03/31/24 07/19/24 History magnesium) tablet polyethylene glycol 3350 17 gram 17 g PO DAILY 30 days #30 ea 03/31/24 07/19/24 Rx oral powder packet (HealthyLax) docusate sodium 100 mg capsule 100 mg PO DAILY PRN bowels 05/08/24 07/19/24 History azelastine 137 mcg (0.1 %) nasal 1 spray intranasal DAILY 30 days 05/16/24 07/19/24 Rx spray #30 mL esomeprazole magnesium 40 mg See Rx Instructions .Route 05/21/24 07/19/24 Rx capsule,delayed release .COMPLEX #30 caps clopidogrel 75 mg tablet See Rx Instructions .Route 05/28/24 07/19/24 Rx .COMPLEX #90 tabs allopurinol 300 mg tablet See Rx Instructions .Route 07/02/24 07/19/24 Rx .COMPLEX #90 tabs sodium,potassium,mag sulfates 17.5 See Rx Instructions PO .COMPLEX 07/04/24 07/19/24 Rx gram-3.13 gram-1.6 gram oral soln #354 mL (Suprep Bowel Prep Kit) lisinopril 20 mg tablet See Rx Instructions .Route 07/06/24 07/19/24 Rx .COMPLEX #180 tabs meclizine 12.5 mg tablet See Rx Instructions .Route 07/11/24 07/19/24 Rx .COMPLEX #30 tabs gabapentin 300 mg capsule 300 mg PO TID #90 caps 07/17/24 07/19/24 Rx tamsulosin 0.4 mg capsule 0.8 mg (2 x 0.4 mg) PO HS 30 days 07/17/24 07/19/24 Rx #60 caps New Prescriptions to Start Prescriptions: Allergies Allergy/AdvReac Type Severity Reaction Status Date / Time Sulfa (Sulfonamide Allergy Unknown Hives Verified 07/19/24 07:13 Antibiotics) Exam Data for Last 24 hours Vital signs and Labs for Last 24 Hours: Temp Pulse Resp BP Pulse Ox O2 Del Method 98.3 F 55 L 16 150/78 H 98 Room Air 07/19/24 07:17 07/19/24 07:17 07/19/24 07:17 07/19/24 07:17 07/19/24 07:17 07/19/24 07:17 I & O for Last 24 hours: Intake & Output 07/16/24 07/17/24 07/18/24 07/19/24 23:59 23:59 23:59 23:59 Weight 230 lb *Routine HEENT Exam Head: Present normocephalic Eye: Present EOMI and PERRL ENT: Present mucous membranes moist *Routine Neck Exam Neck: Present supple *Routine Respiratory Exam Respiratory: Present CTA bilaterally *Routine Cardiovascular Exam Cardiovascular: Present RRR *Routine Abdominal Exam Abdominal: Present soft and normoactive bowel sounds; Absent tenderness *Routine Rectal Exam Rectal:: deferred *Routine Genitalia Exam Genitalia:: deferred *Routine Extremities Exam Extremities: Absent cyanosis, clubbing or edema *Routine Skin Exam Skin: Present warm; Absent rash *Routine Neurological Exam Neurological: Present alert and oriented X3 Assessment and Plan *Assessment and plan (1) Chronic constipation: Status: Acute Category: Medical Code(s): K59.09 - Other constipation (2) Incomplete defecation: Status: Acute Category: Medical Code(s): R15.0 - Incomplete defecation (3) Change in bowel habits: Status: Acute Category: Medical Code(s): R19.4 - Change in bowel habit Plan A/P: 1. Incomplete defecation/constipation with change in bowel habits is the preprocedural diagnosis. The patient will be anesthetized/sedated using MAC sedation. The patient has been seen and examined. Cardiac and lung assessment prior to the examination is stable. Proceed with planned diagnostic colonoscopy.
--- NOTE | 2024-07-19 07:58 | EXP.ANES.CKL ---
[facility] Disclaimer: The information contained in this section may have been updated after the patient was seen, as this information can be updated by other users. Medical History (Updated 07/19/24 @ 07:58 by Garo Ziegler II, MD) Acute proctitis Ear pain Colon cancer screening Abdominal pain Testicular pain COVID-19 Viral syndrome Strain of lumbar region Constipation SNHL (sensorineural hearing loss) Dysfunction of right eustachian tube Ringing in the ears Inflammation of eustachian tube Hearing loss Impacted cerumen of right ear Gout Surgical History History of tonsillectomy H/O neck surgery History of cholecystectomy Family History Mother Coronary artery disease Father Cancer Alcoholism Social History Smoking Status: Never smoker alcohol intake: former (socially) substance use type: denies use current occupational status: other Travel in the last 8 weeks?: None household members: other housing: other Have you lived/traveled outside US in past 30 days?: No Contact w/someone who lives/traveled outside US past 30 days?: No Exposure to someone with infectious disease in past 14 days?: No Do you have a fever (greater than 100.4 F or 38 C)?: No Have you tested positive for COVID-19?: No Exposed to someone with COVID-19 in past 14 days?: No Do you have a sore throat?: No Do you have a cough?: No Do you have any weakness?: No Do you have any diarrhea?: No Are you experiencing any unusual bleeding?: No Do you have any muscle aches/pain?: No Do you have any abdominal pain?: No Are you experiencing loss of taste or smell?: No [facility] Anesthesia Checklist Patient Identification Patient Identification: Arm Band and Verbal (Name & ) Structural Data Admitted From: Home Planned Operative Procedure/s: Colonoscopy Consent for Planned Operative Procedure(s) Verified: Yes Verified Documents: Surgical Consent NPO Status Verified Time NPO: 00:00 Chart Verification Results Verified: None Additional verifications Anesthesia Reactions: No Airway Assessment Mallampati Score:: Class II Dentition: Good Dentition Neurological Assessment Level of Consciousness: Awake, Alert and Appropriate Hx Seizures: No Numbness or tingling in extremities: No Anesthesia Plan Anesthesia Risk discussed: Yes Anesthesia Plan: Verified ASA Class: III Anesthesia Type: MAC
--- NOTE | 2024-07-19 07:59 | P.PCN_ITS ---
[facility] Procedure Note Date: 07/19/24 Time: 08:18 Procedure Note:: Colonoscopy Procedure Report: Colonoscopy Endoscopist: Garo Ziegler II, MD Referring physician: Lance Jarvis MD Date of Procedure: July 19, 2024 Equipment: Olympus 190 variable stiffness pediatric colonoscope Sedation: MAC sedation Indication: Mr. Vigil is a 73-year-old gentleman who is here for diagnostic colonoscopy. He has had some gradual change in bowel habits. He has had defecatory and urinary difficulties. He was seen in the ED for urinary retention and constipation. His CAT scan had shown the appearance of moderate amount of stool in the left colon and possible fecal impaction and some proctiti s. He was treated with enemas and MiraLAX and was eventually able to move his bowels. He had been on stool softeners and drinking prune juice. He does have hard pebble-like stools at times with incomplete defecation. His last colonoscopy was 14 years ago. He reports no rectal bleeding, abdominal pain, weight loss or family history of colon cancer. Procedure: Prior to the procedure, a history and physical exam was performed, and patient's medications and allergies were reviewed. The risks, benefits and alternatives of the sedation and procedure were discussed with the patient. All questions were answered and informed consent was obtained. The patient was brought to the procedure room. Patient identification and proposed procedure were verified by the physician and the nurse. The patient was placed in a left lateral decubitus position and the scope was passed under direct vision. Throughout the procedure, the patient's blood pressure, pulse, and oxygen saturations were monitored continuously. The colonoscopy was accomplished without difficulty. The patient tolerated the procedure well. Findings: On digital rectal examination there was normal rectal tone. There were no external hemorrhoids. The prostate was 2+, smooth, soft, symmetric without nodules. The colonoscope was introduced through the anal canal to the rectum and advanced to the cecum. The ileocecal valve and appendiceal orifice were identified. The scope was advanced a short distance into the ileum which appeared grossly normal. The scope was then withdrawn into the colon. The cecum, ascending, transverse, descending, sigmoid and rectum were grossly normal. There were no mucosal abnormalities identified. Upon retroflexion within the rectum there were grade 1-2 internal hemorrhoids. The preparation was excellent throughout with Witten Preparation Score of 9. The cecal time was 11 minutes. Impression: 1. Normal colonoscopy with intubation of the terminal ileum 2. Grade 1-2 internal hemorrhoids Plan: The patient does have outlet dysfunction constipation with incomplete defecation. Slow transit constipation refers to slowed movement of contents through the digestive tract and this type of constipation responds very well to most laxatives. Outlet dysfunction, which makes up 50% of those with constipation, refers to an issue with the actual elimination mechanism of stool. The diagnosis of outlet dysfunction constipation is often made in those patients with constipation that respond poorly or not at all to standard laxatives such as osmotics (MiraLAX, Linzess, Trulance), fiber supplements, stimulant laxatives, diet and fluid intake. Up to 50% of patients with chronic constipation have pelvic floor dysfunction (PFD, or dyssynergia). This condition is characterized by impaired coordination between pelvic floor muscle (e.g., puborectalis) relaxation and weakness of the defecatory mechanism which is necessary for normal defecation and bowel evacuation. Defecatory function is a delicate balance between the nerves and muscles. The nerves that arise from the sacral spine are very closely tied to bowel/rectal evacuation. This sacral nervous system allows you to recognize when your rectum is full and allows you to correctly contract muscles to allow for your rectum to evacuate fully. When this balance is upset there is incorrect communication between the nervous system and defecatory muscles (i.e. neuromuscular). Unfortunately, pelvic floor dysfunction is not widely recognized as a possible cause of chronic constipation. As a result, many patients with medically refractory constipation do not receive optimal therapies that enable them to recover normal bowel habits. When mechanical, anatomic, and disease- and diet-related causes of constipation have been ruled out, clinical suspicion should be raised to the possibility that pelvic floor dysfunction is causing or contributing to constipation. The biggest mainstay of treatment for pelvic floor dysfunction includes retraining the pelvic floor muscles with biofeedback physical therapy. Most reviews conclude that more than 70% of adult patients complaining of pelvic floor dyssynergia are likely to benefit from biofeedback training (to completion) and so this is the treatment of choice for the problem. I am going to refer the patient for pelvic floor physical therapy. I would recommend continuation of MiraLAX plus Citrucel every morning and Perdiem in the evenings. He will not require any further preventive/surveillance colonoscopy.
--- NOTE | 2024-07-19 08:01 | P.PNANES_ITS ---
[facility] Disclaimer: The information contained in this section may have been updated after the patient was seen, as this information can be updated by other users. Medical History (Updated 07/19/24 @ 07:58 by Garo Ziegler II, MD) Acute proctitis Ear pain Colon cancer screening Abdominal pain Testicular pain COVID-19 Viral syndrome Strain of lumbar region Constipation SNHL (sensorineural hearing loss) Dysfunction of right eustachian tube Ringing in the ears Inflammation of eustachian tube Hearing loss Impacted cerumen of right ear Gout Surgical History History of tonsillectomy H/O neck surgery History of cholecystectomy Family History Mother Coronary artery disease Father Cancer Alcoholism Social History Smoking Status: Never smoker alcohol intake: former (socially) substance use type: denies use current occupational status: other Travel in the last 8 weeks?: None household members: other housing: other Have you lived/traveled outside US in past 30 days?: No Contact w/someone who lives/traveled outside US past 30 days?: No Exposure to someone with infectious disease in past 14 days?: No Do you have a fever (greater than 100.4 F or 38 C)?: No Have you tested positive for COVID-19?: No Exposed to someone with COVID-19 in past 14 days?: No Do you have a sore throat?: No Do you have a cough?: No Do you have any weakness?: No Do you have any diarrhea?: No Are you experiencing any unusual bleeding?: No Do you have any muscle aches/pain?: No Do you have any abdominal pain?: No Are you experiencing loss of taste or smell?: No [facility] Anesthesia Checklist Patient Identification Patient Identification: Verbal (Name & ) Structural Data Admitted From: Home Planned Operative Procedure/s: colonoscopy Consent for Planned Operative Procedure(s) Verified: Yes NPO Status Verified Time NPO: 00:00 Airway Assessment Mallampati Score:: Class II C-Spine Mobility Assessed: Yes TMJ Mobility Assessed: Yes Dentition: Good Dentition Neurological Assessment Level of Consciousness: Awake, Alert and Appropriate Anesthesia Plan Anesthesia Risk discussed: Yes Anesthesia Plan: Verified ASA Class: II Anesthesia Type: MAC
== END 2024-07-19 09:12 | disposition home or self-care (01) ==
PROVIDERS: PCP Family Medicine; Visit Provider Internal Medicine Gastroenterology
PROC: 0DJD8ZZ Inspection of Lower Intestinal Tract, Via Natural or Artificial Opening Endoscopic (ICD-10-PCS; CPT 45378; principal; 2024-07-19 08:00)
DX: R15.0 Incomplete defecation (principal); K64.8 Other hemorrhoids
CPT/HCPCS: 45378; J7120

== ENCOUNTER 2024-08-15 10:01 | Outpatient (CLI) | payer MEDICARE, SELFPAY ==
[2024-08-15 16:55] LABS: Basophils # 0.1 K/mm3 (0-0.2); Basophils % 0.9 % (0.1-2.0); Eosinophils # 0.1 Kmm3 (0.0-0.4); Eosinophils % 1.2 % (0.1-12.0); Hematocrit 42.3 % (42.0-52.0); Hemoglobin 14.2 g/dL (14.1-18.0); Immature Granulocytes # 0.02 10^3uL; Immature Granulocytes % 0.3 %; Lymphocytes # 1.2 K/mm3 (0.7-4.5); Lymphocytes % 17.8 % (10-50); Mean Corpuscular HGB Conc 33.6 g/dL (31.8-35.4); Mean Corpuscular Hemoglobin 31.4 pg (27.0-31.2); Mean Corpuscular Volume 93.6 fl (80-94); Mean Platelet Volume 9.6 fl (7.4-10.4); Monocytes # 0.6 K/mm3 (0.1-1.0); Monocytes % 8.5 % (1.7-9.3); Neutrophils # 4.6 K/mm3 (1.8-7.8); Neutrophils % 71.3 % (37.0-80.0); Nucleated Red Blood Cells # 0 10^3/uL; Nucleated Red Blood Cells % 0 %; Platelet Count 233 K/mm3 (142-424); Red Blood Count 4.52 M/mm3 (4.60-6.20); Red Cell Distribution Width 13.3 % (11.5-17.5); Red Cell Distribution Width-SD 45.7 fL; White Blood Count 6.5 K/mm3 (4.8-10.8)
[2024-08-15 17:25] LABS: Chloride 104 mmol/L (98-107)
[2024-08-15 17:26] LABS: Albumin Level 4.6 g/dl (3.5-5.0); Potassium 4.5 mmoL/L (3.5-5.1); Sodium 139 mmol/L (136-145)
[2024-08-15 17:29] LABS: Alanine Aminotransferase 18 U/L (12-78); Albumin/Globulin Ratio 1.9 (1.1-1.8); Alkaline Phosphatase 111 U/L (38-126); Anion Gap 11.5 mEq/L (5-15); Aspartate Amino Transferase 23 U/L (17-59); Bilirubin,Total 0.6 mg/dl (0.2-1.3); Blood Urea Nitrogen 14 mg/dl (9-20); Calcium 9.1 mg/dl (8.4-10.2); Carbon Dioxide 28 mmol/L (22.0-30.0); Estimated Glomerular Filt Rate 94 ml/min (>60); GFR (African American) 114 ML/MIN (>60); Globulin 2.4 g/dL (1.3-3.2); Glucose 85 mg/dl (74-100)
--- OUTSIDE RECORDS SUMMARY | 2024-08-16 09:55 | XMS_ITS | Clinical Summary ---
Author Organization Healthcare Address [address] [place] [address] Care Team Providers Care Housekeeping Laundry Worker Name Role Phone Hernán Duarte MD Primary Care Provider [phone] Immunizations Immunization Administration Dates Next Due Influenza, Unspecified 11/07/2008 Pneumococcal, Unspecified 10/29/2008 Family History Medical History Relation Name Comments Lung cancer Father Cardiac disorder Mother Relation Name Status Comments Father Mother Social History Tobacco Use Types Packs/Day Years Used Date Smoking Tobacco: Never Alcohol Use Standard Drinks/Week Comments No 0 (1 standard drink = 0.6 oz pure alcohol) Alcoholic Drinks/day: Never Drank Alcohol Sex and Gender Information Value Date Recorded Sex Assigned at Not on file Legal Sex Male 8:56 PM EDT Gender Identity Not on file Sexual Orientation Not on file Last Filed Vital Signs Vital Sign Reading Time Taken Comments Blood Pressure - - Pulse - - Temperature - - Respiratory Rate - - Oxygen Saturation - - Inhaled Oxygen Concentration - - Weight 109 kg (241 lb 2.2 oz) 07/24/2015 10:36 A M EDT Height 180.3 cm (5' 11 ) 07/24/2015 10:36 AM EDT Body Mass Index 33.63 07/24/2015 10:36 AM EDT Plan of Treatment Not on file Care Teams Housekeeping Laundry Worker Relationship Specialty Start Date End Date Hernán Duarte MD [address] [place] [address] PCP - General 07/11/20
[2024-08-17 05:42] LABS: Hepatitis B Surface Antigen Negative (Negative)
== END 2024-08-15 23:59 | disposition home or self-care (01) ==
LOC: LAB.DROPOF 08-16 09:53
PROVIDERS: PCP Family Medicine; Visit Provider Family Medicine
DX: M79.606 Pain in leg, unspecified (principal)
CPT/HCPCS: 80053; 85025; 87340

== ENCOUNTER 2024-08-21 07:39 | Outpatient (CLI) | payer MEDICARE, SELFPAY ==
--- OUTSIDE RECORDS SUMMARY | 2024-08-21 07:42 | XMS_ITS | Clinical Summary ---
Author Organization Healthcare Address [address] [place] [address] Care Team Providers Care Application Architect Manager Name Role Phone Hernán Duarte MD Primary Care Provider [phone] Immunizations Immunization Administration Dates Next Due Influenza, [...] of Treatment Not on file Care Teams Application Architect Manager Relationship Specialty Start Date End Date Hernán Duarte MD [address] [place] [address] PCP - General 07/11/20
--- NOTE | 2024-08-21 08:00 | CA_ITS ---
FINAL REPORT TECHNIQUE: Color and spectral Doppler analysis CLINICAL HISTORY: Back injury, Leg weakness, HTN FINDINGS: Right lower extremity, flow velocities (cm per second): Common femoral artery: 135 Profunda: 89 Proximal SFA: 141 Mid SFA: 117 Distal SFA: 118 Posterior tibial artery proximal: 91 Posterior tibial artery mid: 72 Anterior tibial artery mid: 79 Peroneal artery: 77 Left lower extremity, flow velocities (cm per second): Common femoral artery: 155 Profunda: 94 Proximal SFA: 129 Mid SFA: 98 Distal SFA: 108 Posterior tibial artery proximal: 118 Posterior tibial artery mid: 101 Anterior tibial artery mid: 91 Peroneal artery: 67 Waveforms are noted to be biphasic and triphasic. IMPRESSION: No significant obstructive peripheral vascular disease. Reviewed, Interpreted and Dictated by Narciso Chambers MD Transcribed by Cherie Fernandez Authenticated and . [facility]
== END 2024-08-21 23:59 | disposition home or self-care (01) ==
LOC: RT 07:40
PROVIDERS: PCP Family Medicine; Visit Provider Family Medicine
DX: I73.9 Peripheral vascular disease, unspecified (principal); M79.604 Pain in right leg; M79.605 Pain in left leg; I10 Essential (primary) hypertension
CPT/HCPCS: 93925

== ENCOUNTER 2025-02-26 15:30 | Emergency (ER) | payer MEDICARE, SELFPAY ==
[2025-02-26] VITALS (15 sets, daily range): BP systolic 129–172; BP diastolic 51–91; PULSE 56–98; RESP 18; TEMP 36.6; O2SAT 94–97; BMI 32.6
--- OUTSIDE RECORDS SUMMARY | 2025-02-26 15:43 | XMS_ITS | Encounter Summary ---
[facility] Organization [facility] Address [address] [place] [id number] Care Team Providers Care Software Engineer Web Applications Name Role Phone Lance Jarvis MD Primary Care Provider [phone] Encounter Details Date Type Department Care Team (Late st Contact Info) Description 12/28/2024 Telephone [facility] [address] [address] Isacc Baez MD [address] [place] [address] Social History Tobacco Use Types Packs/Day Years Used Date Smoking Tobacco: Never Smokeless Tobacco: Current Chew Comments:Smokeless Tobacco f or 20 years Alcohol Use Standard Drinks/Week Comments No 0 (1 standard drink = 0.6 oz pur e alcohol) AUDIT-C Answer Date Recorded Q1: How often do you have a drink containing alcohol? Never 06/23/2021 Q2: How many drinks containi ng alcohol do you have on a typical day when you are drinking? Patient does not drink Q3: How often do you have si x or more drinks on one occasion? Never 06/23/2021 PHQ-2 Answer Date Recorded Retired PHQ-9: Brief Depression Severity Measure Score 0 04/13/2022 PHQ-2 Answer Date Recorded Patient Health Questionnaire-2 Score 1 11/20/2024 Sex and Gender Information Value Date Recorded Sex Assigned at Not on file Legal Sex Male 1:39 PM EDT Gender Identity Not on file Sexual Orientation Not on file documented as of this encounter Miscellaneous Notes * Telephone Encounter - Beth Holloway MA - 12/28/2024 9:38 AM EDT I spoke with the patient regarding how they are feeling after their procedure with Dr Baez on 12/26/2024. Patient reports that he/she is doing well. Pain level before procedure: 7/10 Pain level after procedure: 0/10 Today, the patient reports pain level 0/10. Patient denies side effects or complications. Patient does not have any questions or concerns at this time. Advised patient of follow up with Trish Dolan APRN on May 22 [place]. documented in this encounter Plan of Treatment Upcoming Encounters Date Type Department Care Team (Late st Contact Info) Description 05/22/2025 11:15 AM EDT Office Visit [facility]IN [facility]NAG[facility] [address] [facility] [address] [place] [address] Trish Dolan APRN 1760 [facility] [address] [place] [address] 07/31/2025 9:45 AM EDT Office Visit [facility] [address] [place] [address] Robert Husain MD [address] [facility] [address] [place], [place] [id number] documented as of this encounter Visit Diagnoses Not on filedocumented in this encounter Care Teams Software Engineer Web Applications Relationship Specialty Start Date End Date Lance Jarvis MD [address] [place] [address] [place] [address] PCP - General Family Medicine 07/28/22 documented as of this encounter
--- OUTSIDE RECORDS SUMMARY | 2025-02-26 15:43 | XMS_ITS | Clinical Summary ---
Author Organization Healthcare Address [address] [place] [address] Care Team Providers Care Doctor Of Nurse Anesthesia Practice Name Role Phone Hernán Duarte MD Primary Care Provider [phone] Immunizations Immunization Administration Dates Next Due Influenza, [...] of Treatment Not on file Care Teams Doctor Of Nurse Anesthesia Practice Relationship Specialty Start Date End Date Hernán Duarte MD [address] [place] [address] PCP - General 07/11/20
--- OUTSIDE RECORDS SUMMARY | 2025-02-26 15:43 | XMS_ITS | Encounter Summary ---
[facility] Organization [facility] Address [address] [place] [address] Care Team Providers Care Gore Inserter Name Role Phone Lance Jarvis MD Primary Care Provider [phone] Encounter Details Date Type Department Care Team (Late st Contact Info) Description 12/12/2024 Results Follow-Up [facility] PAIN [facility]NAGEMENT [address] [address] Trish Dolan, BERRY PICKER MACHINE OPERATOR [address] [facility] [address] [place] [address] Social History Tobacco Use Types Packs/Day Years [...] on file documented as of this encounter Plan of Treatment Upcoming Encounters Date Type Department Care Team (Late st Contact Info) Description 05/22/2025 11:15 AM EDT Office Visit [facility] PAIN MANAGEMENT [address] [facility] [address] [place] [address] Trish Dolan, BERRY PICKER MACHINE OPERATOR [address] [place], [place] [id number] 07/31/2025 9:45 AM EDT Office Visit [facility] [address] [place] [address] Robert Husain MD [address] [facility] [address] [place] [address] documented as of this encounter Visit Diagnoses Not on filedocumented in this encounter Care Teams Gore Inserter Relationship Specialty Start Date End Date Lance Jarvis MD [address] [place] [address] PCP - General Family Medicine 07/28/22 documented as of this encounter
--- OUTSIDE RECORDS SUMMARY | 2025-02-26 15:43 | XMS_ITS | Clinical Summary ---
Author Organization [facility] Address [address] [place] [address] Care Team Providers Care Shredding Floor Equipment Operator Name Role Phone Lance Jarvis MD Primary Care Provider [phone]- [phone] Allergies Active Allergy Reactions Criticality Noted Date Comments Sulfa Antibiotics Rash Low 05/04/2016 Medications aspirin 81 MG EC tablet Take 1 tablet by mouth Daily. Active [place]-3 Fatty Acids (FISH OIL) 1000 MG capsule capsule Take by mouth Daily With Breakfast. Takes 2 caps once daily Active Garlic 2000 MG capsule Take 2,000 mg by mouth Daily. Active meclizine 25 MG chewable tablet chewable tablet Chew 1 tablet As Needed. Active azelastine (ASTEPRO) 0.15 % solution nasal spray Administer 2 sprays into the nostril(s) as directed by provider As Needed for Rhinitis. Active ascorbic acid (VITAMIN C) 500 MG tablet Take 1 tablet by mouth Daily. Active Vitamin D, Cholecalciferol , (CHOLECALCIFERO L) 10 MCG (400 UNIT) tablet Take 1 tablet by mouth Daily. Active B Somzhgm-U-J-Zn (b hssmxxd-O-R-zin c) tablet Take 1 tablet by mouth Daily. Active gabapentin (NEURONTIN) 300 MG capsuleIndicati ons:Lumbar disc herniation with radiculopathy,D DD (degenerative disc disease), lumbar Take 1 capsule by mouth 3 (Three) Times a Day. 90 capsule 5 2 Active esomeprazole (nexIUM) 40 MG capsule Take 1 capsule by mouth Daily. 30 capsule 1 2 Active allopurinol (ZYLOPRIM) 300 MG tablet TAKE 1 TABLET BY MOUTH EVERY EVENING 90 tablet 3 Active azelastine (ASTELIN) 0.1 % nasal spray 2 Active colchicine 0.6 MG tablet 2 Active Magnesium Oxide 400 (240 Mg) MG tablet 3 Active amLODIPine (NORVASC) 5 MG tablet Take 1 tablet by mouth Daily. 90 tablet 3 3 Active clopidogrel (PLAVIX) 75 MG tablet Take 1 tablet by mouth Daily. 90 tablet 3 3 Active lisinopril (PRINIVIL,ZESTR IL) 20 MG tablet Take 1 tablet by mouth 2 (Two) Times a Day. 180 tablet 3 3 Active tamsulosin (FLOMAX) 0.4 MG capsule 24 hr capsule Take 2 capsules by mouth every night at bedtime. 5 Active Active Problems Problem Noted Date Diagnosed Date Chest pain 06/22/2021 Palpitations 06/22/2021 Right leg pain 05/20/2021 Moderate obesity 12/12/2018 History of stroke 12/12/2018 Chronic anticoagulation 12/12/2018 Lumbar disc herniation with radiculopathy 2018 DDD (degenerative disc disease), lumbar 12/10/19 19 Spondylolisthesis, lumbar region 12/09/2018 Transient ischemic attack Overview (05/04/2016): 10/29/08 PFO (patent foramen ovale) Overview (05/04/2016): a. Echocardiogram at suggestive of PFO. Ejection fraction greater than 55%. b. DELROY revealed small PFO. c. Normal transcranial Doppler, April 2013. d. Symptomatic on dual antiplatelet therapy since 2008, his initial presentation Hypertension Overview (05/04/2016): Hypertension. Although high reading today, patient brings in his blood pressure log which was reviewed by myself which shows his blood pressures at home are consistently running 105 to 135 systolic. Apparently his blood pressure cuff has been calibrated by his primary care physician. Diabetes mellitus Dyslipidemia Overview (05/04/2016): H/o not on statin Gout BPH (benign prostatic hyperplasia) Resolved Problems Problem Noted Date Diagnosed Date Resolved Date Hypokalemia 06/22/2021 06/23/2021 Hypomagnesemia 06/22/2021 06/23/2021 Encounters Date Type Department Care Team Description 12/28/2024 Telephone [facility] [address] [facility] [address] [place] [phone] Isacc Baez MD 12/26/2024 9:30 AM EDT Outside Facility Service [facility] PAIN [facility]NA[facility] [address] [place] [phone] Isacc Baez MD 12/26/2024 Documentation [facility] [address] [place] [phone] Isacc Baez MD 12/13/2024 Telephone [facility] [address] [address] Isacc Baez MD 12/12/2024 Results Follow-Up [facility] [address] [facility] [address] [place] [address] Trish Dolan, DOOR ATTENDANT 12/08/2024 9:14 AM EDT - 12/08/2024 11:59 PM EDT Hospital Encounter [facility] [address] [facility] [address] [place] [address] Lumbar disc herniation with radiculopathy Discharge Disposition: Home or Self Care 12/08/2024 9:12 AM EDT - 12/08/2024 11:59 PM EDT Hospital Encounter [facility] MRI [facility] [address] [facility] [address] [place] [address] Discharge Disposition: Home or Self Care 12/08/2024 Travel from Last 3 Months Immunizations Immunization Administration Dates Next Due COVID-19 (PFIZER) Purple Cap Monovalent 04/16/19 21,03/27/2020 Family History Medical History Relation Name Comments Cancer Father Donny Arthritis Mother [place] Heart disease Mother [place] Hypertension Mother [place] Relation Name Status Comments Father Donny Mother Sally Social History Tobacco Use Types Packs/Day Years Used Date Smoking Tobacco: Never Smokeless Tobacco: Current Chew Tobacco Cessation:Ready to Q uit: Not Asked; Counseling Given: Not Answered Comments:Smokeless Tobacco for 20 years Alcohol Use Standard Drinks/Week Comments [...] Sign Reading Time Taken Comments Blood Pressure 144/84 08/01/2024 8:56 AM EDT Pulse 55 08/01/2024 8:56 AM EDT Temperature 36.1 C (96.9 F) 03/17/2023 9:49 AM EST Respiratory Rate 16 06/23/2021 11:21 AM EDT Oxygen Saturation 96% 08/01/2024 8:56 AM EDT Inhaled Oxygen Concentration - - Weight 102 kg (225 lb) 11/20/2024 1:23 PM EDT Height 180.3 cm (5' 11 ) 11/20/2024 1:23 PM EDT Body Mass Index 31.38 11/20/2024 1:23 PM EDT Plan of Treatment Upcoming Encounters Date Type Department Care Team (Late st Contact Info) Description 05/22/2025 11:15 AM EDT Office Visit [facility] [address] [facility] [address] [place] [address] Trish Dolan, DOOR ATTENDANT 1760 [facility] [address] [place] [phone] 07/31/2025 9:45 AM EDT Office Visit [facility] [address] [address] Robert Husain MD [address] [place] [address] Health Maintenance Due Date Last Done Comments DIABETIC EYE EXAM 12/05/1960 DIABETIC FOOT EXAM 12/05/1960 URINE MICROALBUMIN-CREATININ E RATIO (uACR) 12/05/1960 Pneumococcal Vaccine 50+ (1 of 2 - PCV) 1968 10/29/2008 TDAP/TD VACCINES (1 - Tdap) 1968 COLOGUARD 1994 COLON CANCER SCREENING 5 YEA R SIGMOIDOSCOPY 1994 COLONOSCOPY 1994 COLORECTAL CANCER SCREENING 1994 CT COLONOGRAPHY 1994 FECAL OCCULT BLOOD TEST 1994 FIT Testing (1 year) 1994 ZOSTER VACCINE (1 of 2) 12/05/1999 ANNUAL WELLNESS VISIT 07/07/2016 HEPATITIS C SCREENING 07/07/2016 HEMOGLOBIN A1C 12/22/2021 06/22/2021 INFLUENZA VACCINE 09/28/2024 02/06/2024, , 11/24/2020, Additional history exists COVID-19 Vaccine (4 - 2024-2 6 season) 2024 12/15/2020, 04/16/2020, 03/27/2020 RSV Vaccine - Adults (1 - 1- dose 75+ series) 2024 Procedures Procedure Name Priority Date/Time Associated Diagnosis Comments MRI LUMBAR SPINE WO CONTRAST Routine 12/08/2024 10:26 AM EDT Lumbar disc herniation with radiculopathy XR SPINE LUMBAR COMPLETE W FLEX EXT Routine 12/08/2024 9:42 AM EDT Lumbar disc herniation with radiculopathy HEMOGLOBIN A1C Add-On 06/22/2021 8:47 PM EDT from Last 3 Months or Most Recently Relevant to Health Maintenance Results * MRI Lumbar Spine Without Contrast (12/08/2024 10:26 AM EDT) Anatomical Region Laterality Modality Spine, L-spine N/A Magnetic Resonan ce 12/09/2024 4:21 PM EDT Impressions 12/09/2024 4:31 PM EDT Relatively stable MRI of the lumbar spine. Severe right foraminal narrowing at L2-L3. Severe right foraminal narrowing and moderate to severe left foraminal narrowing at L3-L4. Electronically Signed: Chinedu Short MD 12/09/2024 4:31 PM EDT Workstation ID: [id number] Narrative 12/09/2024 4:31 PM EDT MRI LUMBAR SPINE WO CONTRAST Date of Exam: 12/08/2024 10:14 AM EDT Indication: lumbar radiculopathy. Comparison: 05/22/2021 Technique: Routine multiplanar/multisequence sequence images of the lumbar spine were obtained without contrast administration. Findings: Vertebral bodies are labeled according to the prior levels though there appears to be lumbarization of the S1 vertebral body with 6 nonrib-bearing lumbar vertebral bodies. Modic type I degenerative endplate changes noted on the right at L3-L4 and on the left at the superior endplate of L2. Multilevel facet disease. The conus medullaris terminates at the L1 vertebral body level. No cord signal abnormalities. T12-L1: Facet disease and ligamentum flavum thickening. Minimal canal stenosis. No significant foraminal narrowing. L1-L2: Disc osteophyte complex with ligamentum flavum thickening and facet disease. Mild canal stenosis. Moderate left and mild right foraminal narrowing. L2-L3: Disc osteophyte complex. Ligamentum flavum thickening and facet disease. Mild canal stenosis. Moderate left and severe right foraminal narrowing. L3-L4: Disc osteophyte complex. Mild disc space narrowing. Moderate canal stenosis. Facet disease and ligamentum flavum thickening. Severe right and moderate to severe left-sided foraminal narrowing. L4-L5: Disc osteophyte complex with ligamentum flavum thickening and facet disease. Mild canal stenosis. Mild right and moderate left foraminal narrowing. L5-S1: No significant spinal canal or foraminal narrowing. Procedure Note Chinedu Short MD - 12/09/2024 MRI LUMBAR SPINE WO CONTRAST Date of Exam: 12/08/2024 10:14 AM EDT Indication: lumbar radiculopathy. Comparison: 05/22/2021 Technique: Routine multiplanar/multisequence sequence images of thelumbar spine were obtained without contrast administration. Findings: Vertebral bodies are labeled according to the prior levelsthough there appears to be lumbarization of the S1 vertebral body with 6nonrib-bearing lumbar vertebral bodies. Modic type I degenerative endplatechanges noted on the right at L3-L4 and on the left at the superior endplate of L2. Multilevel facet disease.The conus medullaris terminates at the L1 vertebral body level. No cordsignal abnormalities. T12-L1: Facet disease and ligamentum flavum thickening. Minimal canalstenosis. No significant foraminal narrowing. L1-L2: Disc osteophyte complex with ligamentum flavum thickening and facetdisease. Mild canal stenosis. Moderate left and mild right foraminalnarrowing. L2-L3: Disc osteophyte complex. Ligamentum flavum thickening and facetdisease. Mild canal stenosis. Moderate left and severe right foraminalnarrowing. L3-L4: Disc osteophyte complex. Mild disc space narrowing. Moderate canalstenosis. Facet disease and ligamentum flavum thickening. Severe right andmoderate to severe left-sided foraminal narrowing. L4-L5: Disc osteophyte complex with ligamentum flavum thickening and facetdisease. Mild canal stenosis. Mild right and moderate left foraminalnarrowing. L5-S1: No significant spinal canal or foraminal narrowing. IMPRESSION: Relatively stable MRI of the lumbar spine. Severe right foraminalnarrowing at L2-L3. Severe right foraminal narrowing and moderate tosevere left foraminal narrowing at L3-L4. Electronically Signed: Chinedu Short MD 12/09/2024 4:31 PM EDT Workstation ID: [id number] Trish Dolan DOOR ATTENDANT IMG MRI ORDERABLES Final Res ult * XR Spine Lumbar Complete With Flex & Ext (12/08/2024 9:42 AM EDT) Anatomical Region Laterality Modality Spine, L-spine N/A Radiographic Annika ging 12/12/2024 4:51 PM EDT Impressions 12/12/2024 4:56 PM EDT Impression: Moderate multilevel degenerative changes as described above. Alignment is maintained in flexion and extension. Electronically Signed: Matt Burgos DO 12/12/2024 4:56 PM EDT Workstation ID: [id number] Narrative 12/12/2024 4:56 PM EDT XR SPINE LUMBAR COMPLETE W FLEX EXT Date of Exam: 12/08/2024 9:24 AM EDT Indication: to assess stability. Comparison: Flexion-extension views of the lumbar spine dated 05/22/2021 and complete L-spine series dated 07/05/2019 Technique: Radiographs of the lumbar spine were obtained with flexion and extension. 6 views minimum were obtained. Findings: There is straightening of the lumbar lordosis. No anterolisthesis or retrolisthesis. Alignment is maintained in flexion and extension. The vertebral body heights are maintained. There is diffuse mild to moderate disc space narrowing throughout the lumbar spine with nonbridging anterior endplate osteophytes. The degenerative changes are most severe at the L2-3 level. No acute fractures or focal osseous lesions. There is arthropathy at the L3 445 and L5-S1 levels. No pars defects. There is partial osseous fusion of the SI joints. Procedure Note Matt Burgos, - 12/12/2024 XR SPINE LUMBAR COMPLETE W FLEX EXT Date of Exam: 12/08/2024 9:24 AM EDT Indication: to assess stability. Comparison: Flexion-extension views of the lumbar spine dated 05/22/2021nd complete L-spine series dated 07/05/2019 Technique: Radiographs of the lumbar spine were obtained with flexion andextension. 6 views minimum were obtained. Findings: There is straightening of the lumbar lordosis. No anterolisthesis orretrolisthesis. Alignment is maintained in flexion and extension. Thevertebral body heights are maintained. There is diffuse mild to moderatedisc space narrowing throughout the lumbar spine with nonbridging anterior endplate osteophytes. The degenerativechanges are most severe at the L2-3 level. No acute fractures or focalosseous lesions. There is arthropathy at the L3 445 and L5-S1 levels. Nopars defects. There is partial osseous fusion of the SI joints. IMPRESSION: Impression: Moderate multilevel degenerative changes as described above. Alignment ismaintained in flexion and extension. Electronically Signed: Matt Burgos DO 12/12/2024 4:56 PM EDT Workstation ID: [id number] Trish Dolan APRN IMG DIAGNOSTIC IMAGING ORDER JAYA Final Result * (ABNORMAL) Hemoglobin A1c (06/22/2021 8:47 PM EDT) Hemoglobin A1C 6.70(H) 4.80 - 5.60 % 06/23/2021 12:41 AM EDT [facility] Blood Venipuncture / Unknown 06/22/2021 8:47 PM EDT 06/22/2021 8:56 PM EDT Narrative [facility] - 06/23/2021 12:41 AM EDT Hemoglobin A1C Ranges: Increased Risk for Diabetes 5.7% to 6.4% Diabetes >= 6.5% Diabetic Goal < 7.0% Darren Uribe DO LAB BLOOD ORDERABLES Final Resu lt [facility]
[address] [place] [address], from Last 3 Months or Most Recently Relevant to Health Maintenance Insurance MEDICARE A & B [facility] SUP Advance Directives * CPR (Attempt to Resuscitate) (Latest Code Status on File) Date Activated Date Inactivated Comments 06/22/2021 11:39 PM 06/23/2021 6:56 PM Question Answer Comments Code Status (Patient has no pulse and is not breathing): CPR (Attempt to Resuscitate) Medical Interventions (Patie nt has pulse or is breathing): Full Support Care Teams Shredding Floor Equipment Operator Relationship Specialty Start Date End Date Lance Jarvis MD [address] [place] [address] PCP - General Family Medicine 07/28/22
--- NOTE | 2025-02-26 15:45 | HMH.EDGENADL ---
Discharge Plan Disposition Patient Disposition: Xfer Other Prescriptions Prescriptions: No Action Perdiem Overnight Relief 15 mg tablet 15 mg PO DAILY colchicine [Colcrys] 0.6 mg tablet 0.6 mg PO DAILYP PRN (Reason: GOUT) amoxicillin 500 mg tablet 500 mg PO TID Qty: 30 0RF methylprednisolone [Medrol (Khris)] 4 mg tablets,dose pack See Rx Instructions PO PER PKG DIR Qty: 21 0RF Rx Instructions: PO PER PKG DIR amlodipine 5 mg tablet See Rx Instructions .ROUTE .COMPLEX Qty: 90 2RF Dose Instruction: TAKE ONE TABLET BY MOUTH ONCE A DAY FOR BLOOD PRESSURE Rx Instructions: TAKE ONE TABLET BY MOUTH ONCE A DAY FOR BLOOD PRESSURE magnesium oxide 400 mg (241.3 mg magnesium) tablet See Rx Instructions .ROUTE .COMPLEX Qty: 90 3RF Dose Instruction: TAKE ONE TABLET BY MOUTH ONCE A DAY Rx Instructions: TAKE ONE TABLET BY MOUTH ONCE A DAY meclizine 12.5 mg tablet See Rx Instructions .ROUTE .COMPLEX Qty: 30 2RF Dose Instruction: TAKE ONE TABLET BY MOUTH 3 TIMES A DAY NEEDED FOR DIZZINESS Rx Instructions: TAKE ONE TABLET BY MOUTH 3 TIMES A DAY NEEDED FOR DIZZINESS azelastine 137 mcg (0.1 %) spray,non-aerosol 1 spray NS DAILY 30 Days Qty: 30 2RF Rx Instructions: administer into each nostril clopidogrel 75 mg tablet See Rx Instructions .ROUTE .COMPLEX Qty: 90 1RF Dose Instruction: TAKE ONE TABLET BY MOUTH ONCE A DAY FOR BLOOD THINNER Rx Instructions: TAKE ONE TABLET BY MOUTH ONCE A DAY FOR BLOOD THINNER allopurinol 300 mg tablet See Rx Instructions .ROUTE .COMPLEX Qty: 90 0RF Dose Instruction: TAKE ONE TABLET BY MOUTH ONCE A DAY FOR GOUT Rx Instructions: TAKE ONE TABLET BY MOUTH ONCE A DAY FOR GOUT lisinopril 20 mg tablet See Rx Instructions .ROUTE .COMPLEX Qty: 180 0RF Dose Instruction: TAKE ONE TABLET BY MOUTH 2 TIMES A DAY FOR BLOOD PRESSURE Rx Instructions: TAKE ONE TABLET BY MOUTH 2 TIMES A DAY FOR BLOOD PRESSURE tamsulosin 0.4 mg capsule 0.8 mg PO HS Qty: 60 2RF gabapentin 300 mg capsule 300 mg PO TID Qty: 90 2RF esomeprazole magnesium 40 mg capsule,delayed release(DR/EC) See Rx Instructions .ROUTE .COMPLEX Qty: 30 2RF Dose Instruction: TAKE ONE CAPSULE BY MOUTH ONCE A DAY FOR GERD Rx Instructions: TAKE ONE CAPSULE BY MOUTH ONCE A DAY FOR GERD aspirin 81 MG tablet,delayed release (DR/EC) 81 mg PO DAILY garlic 1 EACH tablet 1 each PO DAILY omega-3 fatty acids-fish oil 1 EACH capsule 2 each PO DAILY polyethylene glycol 3350 [HealthyLax] 17 gram Powder In Packet 17 g PO DAILY 30 Days Qty: 30 0RF Referrals Follow up/Referrals: Lance Jarvis MD [Primary Care Provider, Internal Medicine] - See instructions Clinical Impressions Clinical Impression: Constipation, Acute urinary retention, Stercoral colitis, Prostatic hypertrophy, Fecal impaction in rectum Stand Alone Forms Stand Alone Forms: Transfer Record - ED Instructions Patient Instructions: DI for Acute Abdominal Pain Print Language Print Language: Slovenian Discharge ED Provider: Lisa Ingram General Adult HPI <Lisa Ingram MD - Last Filed: 02/26/25 23:13> General Chief complaint: Abdominal Pain Stated complaint: Constipated,unable to void Time Seen by Provider: 02/26/25 15:33 History of Present Illness HPI narrative: Patient is a 74-year-old gentleman presenting today with urinary retention and constipation. Had a similar presentation 1 year ago where he was ultimately admitted after attempted an enema and manual disimpaction without success and had a CT scan showing stercoral colitis/proctitis was admitted for IV fluids cleanout urinary catheter etc. States similar symptoms are present today. Has been on some medications over this last year including Linzess and MiraLAX and some suppositories which is what he tried today. Has not been on anything consistently long-term other than some stool softeners [id number]. Related Data Home Medications ?Medication ?Instructions ?Recorded ?Confirmed aspirin 81 mg tablet,delayed 81 mg PO DAILY 08/03/18 02/25/25 release garlic 1 each PO DAILY Supplement 08/03/18 02/25/25 omega-3 fatty acids-fish oil 300 2 each PO DAILY Supplement 08/03/18 02/25/25 mg-1,000 mg capsule colchicine 0.6 mg tablet (Colcrys) 0.6 mg PO DAILYP PRN GOUT 05/03/23 02/25/25 sennosides 15 mg tablet (Perdiem 15 mg PO DAILY 08/15/24 02/25/25 Overnight Relief) Previous Rx's ?Medication ?Instructions ?Recorded polyethylene glycol 3350 17 gram 17 g PO DAILY 30 days #30 ea 03/31/24 oral powder packet (HealthyLax) amlodipine 5 mg tablet See Rx Instructions .Route 08/30/24 .COMPLEX #90 tabs magnesium oxide 400 mg (241.3 mg See Rx Instructions .Route 09/20/24 magnesium) tablet .COMPLEX #90 tabs meclizine 12.5 mg tablet See Rx Instructions .Route 10/04/24 .COMPLEX #30 tabs azelastine 137 mcg (0.1 %) nasal 1 spray intranasal DAILY 30 days 10/18/24 spray #30 mL clopidogrel 75 mg tablet See Rx Instructions .Route 11/30/24 .COMPLEX #90 tabs allopurinol 300 mg tablet See Rx Instructions .Route 12/28/24 .COMPLEX #90 tabs lisinopril 20 mg tablet See Rx Instructions .Route 01/02/25 .COMPLEX #180 tabs tamsulosin 0.4 mg capsule 0.8 mg (2 x 0.4 mg) PO HS #60 caps 01/14/25 gabapentin 300 mg capsule 300 mg PO TID #90 caps 01/17/25 esomeprazole magnesium 40 mg See Rx Instructions .Route 02/04/25 capsule,delayed release .COMPLEX #30 caps amoxicillin 500 mg tablet 500 mg PO TID #30 tabs 02/25/25 methylprednisolone 4 mg tablets in See Rx Instructions PO PER PKG DIR 02/25/25 a dose pack (Medrol (Khris)) #21 tabs Allergies Allergy/AdvReac Type Severity Reaction Status Date / Time Sulfa (Sulfonamide Allergy Unknown Hives Verified 02/25/25 10:53 Antibiotics) [facility] <Lisa Ingram MD - Last Filed: 02/26/25 23:13> [facility] Disclaimer: The information contained in this section may have been updated after the patient was seen, as this information can be updated by other users. Medical History Peripheral vascular disease, unspecified Bilateral leg pain Acute proctitis Ear pain Colon cancer screening Abdominal pain Testicular pain COVID-19 Viral syndrome Strain of lumbar region Constipation SNHL (sensorineural hearing loss) mild to moderate severe SNHL bilaterally per Audiometric Dysfunction of right eustachian tube Ringing in the ears Inflammation of eustachian tube Hearing loss Impacted cerumen of right ear Gout Surgical History History of tonsillectomy H/O neck surgery History of cholecystectomy Family History Mother Coronary artery disease Father Cancer Alcoholism Social History Smoking Status: Never smoker alcohol intake: former (socially) substance use type: denies use current occupational status: other Travel in the last 8 weeks?: None household members: other housing: other Have you lived/traveled outside US in past 30 days?: No Contact w/someone who lives/traveled outside US past 30 days?: No Exposure to someone with infectious disease in past 14 days?: No Do you have a fever (greater than 100.4 F or 38 C)?: No Have you tested positive for COVID-19?: No Exposed to someone with COVID-19 in past 14 days?: No Do you have a sore throat?: No Do you have a cough?: No Do you have any weakness?: No Do you have any diarrhea?: No Are you experiencing any unusual bleeding?: No Do you have any muscle aches/pain?: No Do you have any abdominal pain?: No Are you experiencing loss of taste or smell?: No Other Medical History Have you received the Flu Vaccine for this season: No Have you received the Pneumonia Vaccine: Yes <Lisa Ingram MD - Last Filed: 02/26/25 23:13> ROS Obtained: Yes All systems reviewed & no additional complaints except as documented Physical Exam <Lisa Ingram MD - Last Filed: 02/26/25 23:13> General General appearance: alert and in no apparent distress Respiratory Respiratory exam: Present normal lung sounds bilaterally Cardiovascular Cardiovascular exam: Present regular rate Abdominal Exam Abdominal exam: Present soft; Absent distention or tenderness Neurological Exam Neurological exam: Present alert and oriented X3 Medical Decision Making <Lisa Ingram MD - Last Filed: 02/26/25 23:13> Medical Records Screening: Per USPSTF and CDC recommendations, given the prevalence of disease in our region, it is our hospital?s policy to screen for HIV and viral Hepatitis for all patients aged 18 and over and those with ongoing risk factors. Flo Inquiry Pt receiving controlled substance: No Vital Signs: 02/26/25 15:36 02/26/25 15:40 02/26/25 15:41 Temperature 97.9 F Temperature Source Oral Pulse Rate 93 H 78 Pulse Rate [Right] 98 H Respiratory Rate 18 Blood Pressure 164/85 H 172/79 H Blood Pressure [Right Arm] 164/85 H Blood Pressure Mean Blood Pressure Mean [Right Arm] 111 Blood Pressure Source [Right Arm] Automatic Cuff Blood Pressure Position [Right Arm] Sitting 02 Sat by Pulse Oximetry 96 97 97 Oxygen Delivery Method Room Air 02/26/25 15:45 02/26/25 19:11 02/26/25 19:16 Temperature Temperature Source Pulse Rate 73 59 L 59 L Pulse Rate [Right] Respiratory Rate Blood Pressure 165/74 H 145/52 H 130/51 L Blood Pressure [Right Arm] Blood Pressure Mean Blood Pressure Mean [Right Arm] Blood Pressure Source [Right Arm] Blood Pressure Position [Right Arm] 02 Sat by Pulse Oximetry 97 97 95 Oxygen Delivery Method 02/26/25 19:20 02/26/25 19:21 02/26/25 19:26 Temperature Temperature Source Pulse Rate 58 L 58 L 58 L Pulse Rate [Right] Respiratory Rate 18 Blood Pressure 133/55 L 145/52 H 129/52 L Blood Pressure [Right Arm] Blood Pressure Mean Blood Pressure Mean [Right Arm] Blood Pressure Source [Right Arm] Blood Pressure Position [Right Arm] 02 Sat by Pulse Oximetry 94 L 97 94 L Oxygen Delivery Method Room Air 02/26/25 19:31 02/26/25 19:35 02/26/25 19:41 Temperature Temperature Source Pulse Rate 56 L 61 77 Pulse Rate [Right] Respiratory Rate Blood Pressure 131/52 L 142/61 H 163/73 H Blood Pressure [Right Arm] Blood Pressure Mean Blood Pressure Mean [Right Arm] Blood Pressure Source [Right Arm] Blood Pressure Position [Right Arm] 02 Sat by Pulse Oximetry 96 95 95 Oxygen Delivery Method 02/26/25 19:46 02/26/25 20:01 02/26/25 23:15 Temperature Temperature Source Pulse Rate 59 L Pulse Rate [Right] Respiratory Rate Blood Pressure 140/63 164/91 H 137/63 Blood Pressure [Right Arm] Blood Pressure Mean 78 103 Blood Pressure Mean [Right Arm] Blood Pressure Source [Right Arm] Blood Pressure Position [Right Arm] 02 Sat by Pulse Oximetry 97 Oxygen Delivery Method 02/27/25 00:07 Temperature 98.6 F Temperature Source Pulse Rate 59 L Pulse Rate [Right] Respiratory Rate 18 Blood Pressure 137/63 Blood Pressure [Right Arm] Blood Pressure Mean Blood Pressure Mean [Right Arm] Blood Pressure Source [Right Arm] Blood Pressure Position [Right Arm] 02 Sat by Pulse Oximetry Oxygen Delivery Method Room Air Lab Data Lab results reviewed: Yes I reviewed the patient's lab results. Lab Results 02/26/25 16:04: WBC 14.8 H, RBC 4.71, Hgb 14.8, Hct 43.7, MCV 92.8, MCH 31.4 H, MCHC 33.9, RDW 12.5, Plt Count 241, MPV 9.1, Neut % (Auto) 88.9 H, Lymph % (Auto) 4.7 L, Churchill % (Auto) 5.6, Eos % (Auto) 0.0 L, Baso % (Auto) 0.1, Neut # (Auto) 13.2 H, Lymph # (Auto) 0.7, Churchill # (Auto) 0.8, Eos # (Auto) 0.0, Baso # (Auto) 0.0, Sodium 137, Potassium 4.4, Chloride 101, Carbon Dioxide 26, Anion Gap 14.4, BUN 17, Creatinine 1.00, Estimated Creat Clear 96, Estimated GFR 73, Est GFR ( Amer) 88, Glucose 175 H, Calcium 9.1, Total Bilirubin 0.5, AST 25, ALT 27, Alkaline Phosphatase 128 H, Total Protein 7.6, Albumin 4.8, Globulin 2.8, Albumin/Globulin Ratio 1.7 02/26/25 16:04 02/26/25 16:04 Orders (Tests/Meds): ED MEDICATIONS Discontinued Medications Generic Name Dose Route Start Last Admin Trade Name Freq PRN Reason Stop Dose Admin Lactated Ringer's 1,000 mls @ 999 mls/hr 02/26/25 16:00 02/26/25 20:14 Lactated Ringer's 1000 Ml Bag IV 02/26/25 17:00 Infused .Q1H1M MARY Infusion Piperacillin Sod/Tazobactam 100 mls @ 200 mls/hr 02/26/25 17:52 02/26/25 20:14 Sod 4.5 gm/ Sodium Chloride IV 02/26/25 18:21 Infused ONCE ONE Infusion Iopamidol 75 ml 02/26/25 17:03 02/26/25 17:04 Iopamidol-370 (76%);100ml Bottle IV 02/26/25 17:04 75 ml ONCE ONE Administration Lidocaine HCl 1 ml 02/26/25 16:38 02/26/25 16:40 Lidocaine 2% Urojet 10ml TP 02/26/25 16:39 1 ml ONCE ONE Administration Lidocaine HCl 1 ml 02/26/25 17:46 02/26/25 17:54 Lidocaine 2% Urojet 10ml TP 02/26/25 17:47 1 ml ONCE ONE Administration Lorazepam 1 mg 02/26/25 18:27 02/26/25 18:33 Lorazepam 2mg/Ml Vial IV 02/26/25 18:28 1 mg ONCE ONE Administration Morphine Sulfate 4 mg 02/26/25 16:30 02/26/25 16:33 Morphine 4mg/Ml Syringe IV 02/26/25 16:31 4 mg ONCE ONE Administration Ondansetron HCl 4 mg 02/26/25 16:30 02/26/25 16:33 Ondansetron 4mg/2ml Vial IV 02/26/25 16:31 4 mg ONCE ONE Administration Sodium Chloride 10 ml 02/26/25 17:03 02/26/25 17:04 Sodium Chloride 0.9% 10ml Syr (Rad Only) IV 03/28/25 17:02 10 ml NEEDED PRN Administration Maintain IV Site Sodium Chloride 10 ml 02/26/25 18:27 Sodium Chloride 0.9% 10ml Vial IV 03/28/25 18:26 NEEDED PRN to Dilute Lorazepam inj ORDERS Category Date Time Status CT abdomen pelvis w con Stat Cat Scan 02/26/25 16:00 Completed CBC w/Auto Diff [Complete Blood Count Auto Diff] Stat Lab 02/26/25 16:04 Completed CMP [Comprehensive Metabolic Panel] Stat Lab 02/26/25 16:04 Completed Medical Decision Narrative: Patient with above history and physical likely has urinary tension secondary to mechanical obstruction from constipation. Had a similar presentation 1 year ago. Will attempt to see if we can get him feeling better with an enema and reassess after that. He does have some rectal discomfort and urinary retention it is possible that we proceed with a similar course of action that he had a year ago including CT scan manual disimpaction cleanout etc. Reassessment 11:02 PM patient's had extensive developments while in the emergency department. CT scan was performed I personally interpreted also reviewed radiology images which showed significant constipation and rectal vault stool impaction. There is also inflammatory change c/w stercoral colitis. Patient had urinary retention and a knutson catheter was attempted to be placed but was unsuccessful. A regular, red rubber and coudet catheter were attempted. The final attempt seemed clinically to be in place however there was no urine return. This is when the CT was performed. The knutson baloon was inflated in the prostatic urethra. This was removed. Patient was given Zosyn. A enema was attempted prior to this CAT scan without any success he only was able to retain about 300 cc of fluid and the pain was so severe that he could not continue. Therefore also the fact that he had manual disimpaction attempts in the past that he did not tolerate well with the severe pain I did not attempt further disimpaction. There was some fluid in his colon on CT scan which is likely the retained fluid from the recent enema. Further attempts were tried to pass a Knutson catheter which were unsuccessful in fact they were traumatic and bloody. At this point we discontinued attempts and felt that the patient most likely needed a urologist to pass a Knutson catheter. There is significant prostatic hypertrophy on the CT scan which is enlarged in comparison with recent CT scans. Unclear the clinical significance of this at the moment. Patient therefore need to be transferred where there was urology coverage. We attempted to call multiple healthcare systems in [place] including [facility] and [facility] and [facility] all of whom declined for multiple reasons but mainly capacity. Patient was ultimately excepted at [facility] I spoke with Dr. Louie with urology and Dr. Vazquez ultimately excepted to the emergency department as an ED to ED transfer. <Curt Browning MD - Last Filed: 02/27/25 00:53> Vital Signs: 02/26/25 15:36 02/26/25 15:40 02/26/25 15:41 Temperature 97.9 F Temperature Source Oral Pulse Rate 93 H 78 Pulse Rate [Right] 98 H Respiratory Rate 18 Blood Pressure 164/85 H 172/79 H Blood Pressure [Right Arm] 164/85 H Blood Pressure Mean Blood Pressure Mean [Right Arm] 111 Blood Pressure Source [Right Arm] Automatic Cuff Blood Pressure Position [Right Arm] Sitting 02 Sat by Pulse Oximetry 96 97 97 Oxygen Delivery Method Room Air 02/26/25 15:45 02/26/25 19:11 02/26/25 19:16 Temperature Temperature Source Pulse Rate 73 59 L 59 L Pulse Rate [Right] Respiratory Rate Blood Pressure 165/74 H 145/52 H 130/51 L Blood Pressure [Right Arm] Blood Pressure Mean Blood Pressure Mean [Right Arm] Blood Pressure Source [Right Arm] Blood Pressure Position [Right Arm] 02 Sat by Pulse Oximetry 97 97 95 Oxygen Delivery Method 02/26/25 19:20 02/26/25 19:21 02/26/25 19:26 Temperature Temperature Source Pulse Rate 58 L 58 L 58 L Pulse Rate [Right] Respiratory Rate 18 Blood Pressure 133/55 L 145/52 H 129/52 L Blood Pressure [Right Arm] Blood Pressure Mean Blood Pressure Mean [Right Arm] Blood Pressure Source [Right Arm] Blood Pressure Position [Right Arm] 02 Sat by Pulse Oximetry 94 L 97 94 L Oxygen Delivery Method Room Air 02/26/25 19:31 02/26/25 19:35 02/26/25 19:41 Temperature Temperature Source Pulse Rate 56 L 61 77 Pulse Rate [Right] Respiratory Rate Blood Pressure 131/52 L 142/61 H 163/73 H Blood Pressure [Right Arm] Blood Pressure Mean Blood Pressure Mean [Right Arm] Blood Pressure Source [Right Arm] Blood Pressure Position [Right Arm] 02 Sat by Pulse Oximetry 96 95 95 Oxygen Delivery Method 02/26/25 19:46 02/26/25 20:01 02/26/25 23:15 Temperature Temperature Source Pulse Rate 59 L Pulse Rate [Right] Respiratory Rate Blood Pressure 140/63 164/91 H 137/63 Blood Pressure [Right Arm] Blood Pressure Mean 78 103 Blood Pressure Mean [Right Arm] Blood Pressure Source [Right Arm] Blood Pressure Position [Right Arm] 02 Sat by Pulse Oximetry 97 Oxygen Delivery Method 02/27/25 00:07 Temperature 98.6 F Temperature Source Pulse Rate 59 L Pulse Rate [Right] Respiratory Rate 18 Blood Pressure 137/63 Blood Pressure [Right Arm] Blood Pressure Mean Blood Pressure Mean [Right Arm] Blood Pressure Source [Right Arm] Blood Pressure Position [Right Arm] 02 Sat by Pulse Oximetry Oxygen Delivery Method Room Air Lab Data Lab Results 02/26/25 16:04: WBC 14.8 H, RBC 4.71, Hgb 14.8, Hct 43.7, MCV 92.8, MCH 31.4 H, MCHC 33.9, RDW 12.5, Plt Count 241, MPV 9.1, Neut % (Auto) 88.9 H, Lymph % (Auto) 4.7 L, Churchill % (Auto) 5.6, Eos % (Auto) 0.0 L, Baso % (Auto) 0.1, Neut # (Auto) 13.2 H, Lymph # (Auto) 0.7, Churchill # (Auto) 0.8, Eos # (Auto) 0.0, Baso # (Auto) 0.0, Sodium 137, Potassium 4.4, Chloride 101, Carbon Dioxide 26, Anion Gap 14.4, BUN 17, Creatinine 1.00, Estimated Creat Clear 96, Estimated GFR 73, Est GFR ( Amer) 88, Glucose 175 H, Calcium 9.1, Total Bilirubin 0.5, AST 25, ALT 27, Alkaline Phosphatase 128 H, Total Protein 7.6, Albumin 4.8, Globulin 2.8, Albumin/Globulin Ratio 1.7 Orders (Tests/Meds): ED MEDICATIONS Discontinued Medications Generic Name Dose Route Start Last Admin Trade Name Freq PRN Reason Stop Dose Admin Lactated Ringer's 1,000 mls @ 999 mls/hr 02/26/25 16:00 02/26/25 20:14 Lactated Ringer's 1000 Ml Bag IV 02/26/25 17:00 Infused .Q1H1M MARY Infusion Piperacillin Sod/Tazobactam 100 mls @ 200 mls/hr 02/26/25 17:52 02/26/25 20:14 Sod 4.5 gm/ Sodium Chloride IV 02/26/25 18:21 Infused ONCE ONE Infusion Iopamidol 75 ml 02/26/25 17:03 02/26/25 17:04 Iopamidol-370 (76%);100ml Bottle IV 02/26/25 17:04 75 ml ONCE ONE Administration Lidocaine HCl 1 ml 02/26/25 16:38 02/26/25 16:40 Lidocaine 2% Urojet 10ml TP 02/26/25 16:39 1 ml ONCE ONE Administration Lidocaine HCl 1 ml 02/26/25 17:46 02/26/25 17:54 Lidocaine 2% Urojet 10ml TP 02/26/25 17:47 1 ml ONCE ONE Administration Lorazepam 1 mg 02/26/25 18:27 02/26/25 18:33 Lorazepam 2mg/Ml Vial IV 02/26/25 18:28 1 mg ONCE ONE Administration Morphine Sulfate 4 mg 02/26/25 16:30 02/26/25 16:33 Morphine 4mg/Ml Syringe IV 02/26/25 16:31 4 mg ONCE ONE Administration Ondansetron HCl 4 mg 02/26/25 16:30 02/26/25 16:33 Ondansetron 4mg/2ml Vial IV 02/26/25 16:31 4 mg ONCE ONE Administration Sodium Chloride 10 ml 02/26/25 17:03 02/26/25 17:04 Sodium Chloride 0.9% 10ml Syr (Rad Only) IV 03/28/25 17:02 10 ml NEEDED PRN Administration Maintain IV Site Sodium Chloride 10 ml 02/26/25 18:27 Sodium Chloride 0.9% 10ml Vial IV 03/28/25 18:26 NEEDED PRN to Dilute Lorazepam inj ORDERS Category Date Time Status CT abdomen pelvis w con Stat Cat Scan 02/26/25 16:00 Completed CBC w/Auto Diff [Complete Blood Count Auto Diff] Stat Lab 02/26/25 16:04 Completed CMP [Comprehensive Metabolic Panel] Stat Lab 02/26/25 16:04 Completed Medical Decision Narrative: Patient with above history and physical likely has urinary tension secondary to mechanical obstruction from constipation. Had a similar presentation 1 year ago. Will attempt to see if we can get him feeling better with an enema and reassess after that. He does have some rectal discomfort and urinary retention it is possible that we proceed with a similar course of action that he had a year ago including CT scan manual disimpaction cleanout etc. Reassessment 11:02 PM patient's had extensive developments while in the emergency department. CT scan was performed I personally interpreted also reviewed radiology images which showed significant constipation and rectal vault stool impaction. There is also inflammatory change c/w stercoral colitis. Patient had urinary retention and a knutson catheter was attempted to be placed but was unsuccessful. A regular, red rubber and coudet catheter were attempted. The final attempt seemed clinically to be in place however there was no urine return. This is when the CT was performed. The knutson baloon was inflated in the prostatic urethra. This was removed. Patient was given Zosyn. A enema was attempted prior to this CAT scan without any success he only was able to retain about 300 cc of fluid and the pain was so severe that he could not continue. Therefore also the fact that he had manual disimpaction attempts in the past that he did not tolerate well with the severe pain I did not attempt further disimpaction. There was some fluid in his colon on CT scan which is likely the retained fluid from the recent enema. Further attempts were tried to pass a Knutson catheter which were unsuccessful in fact they were traumatic and bloody. At this point we discontinued attempts and felt that the patient most likely needed a urologist to pass a Knutson catheter. There is significant prostatic hypertrophy on the CT scan which is enlarged in comparison with recent CT scans. Unclear the clinical significance of this at the moment. Patient therefore need to be transferred where there was urology coverage. We attempted to call multiple healthcare systems in [place] including [facility] and [facility] and [facility] all of whom declined for multiple reasons but mainly capacity. Patient was ultimately excepted at [facility] I spoke with Dr. Louie with urology and Dr. Vazquez ultimately excepted to the emergency department as an ED to ED transfer. Nam ORTIZ: I assumed care of the patient at the time of handoff from the prior provider. Patient was transferred in stable condition. Critical Care <Lisa Ingram MD - Last Filed: 02/26/25 23:13> Critical Care Time Critical Care Time: Yes Attestation: On 02/26/25, the high probability of a clinically significant, sudden or life threatening deterioration of the following system(s) required my full and direct attention, intervention and personal management. The time I documented below is in addition to time spent performing reported procedures but includes the following listed in this critical care notation. Total Time Total Critical Care Time: 35
--- NOTE | 2025-02-26 16:00 | CT_ITS ---
PROCEDURE INFORMATION: Exam: CT Abdomen And Pelvis With Contrast Exam date and time: 02/26/2025 5:03 PM Age: 74 years old Clinical indication: Constipation; Additional info: Urinary retention/abd/rectal pain/constipation TECHNIQUE: Imaging protocol: Computed tomography of the abdomen and pelvis with contrast. Radiation optimization: All CT scans at this facility use at least one of these dose optimization techniques: automated exposure control; mA and/or kV adjustment per patient size (includes targeted exams where dose is matched to clinical indication); or iterative reconstruction. Contrast material: ISOVUE; Contrast volume: 75 ml; Contrast route: IV; COMPARISON: CT ABDOMEN PELVIS W CON 03/30/2024 12:35 PM FINDINGS: Tubes, catheters and devices: A balloon bladder catheter is present. The Knutson catheter balloon lies within the prosthetic urethra. This should be repositioned. Lungs: The visualized lung bases are clear. There are punctate pulmonary parenchymal calcifications consistent with remote granulomatous organism exposure. Pleural spaces: There are no pleural effusions. Heart: The visualized portions of the heart are unremarkable. There is no evidence of pericardial fluid collections. Liver: There is diffuse decrease in hepatic/liver parenchymal density consistent with fatty infiltration. The liver demonstrates punctate calcifications consistent with remote granulomatous organism exposure. There is a small region of focal fatty infiltration adjacent in the gallbladder fossa region. Gallbladder and biliary ducts: There has been a cholecystectomy. Pancreas: The pancreas is normal. Spleen: The spleen demonstrates punctate calcifications, consistent with remote granulomatous organism exposure. An accessory splenule is present. Adrenal glands: The adrenal glands are normal. Kidneys and ureters: There is a 2 cm superolateral right renal cyst. There is mild bilateral nonspecific inflammatory perinephric stranding. There is a focal subcentimeter right renal hypodensity that cannot be further characterized on the current examination. Statistically, this is likely a cyst. The kidneys are otherwise within range of normal. Stomach and bowel: The stomach is normal. The duodenum is unremarkable. Lack of gastrointestinal contrast limits evaluation of bowel. Unopacified loops of small bowel within range of normal. There is mildly excessive colonic stool content, most noted in the rectal vault. The rectum measures approximately 6.8 cm. There is a minor perirectal fat stranding involving the posterior rectum which may be secondary to minor stercoral colitis. There is mild retained fluid within the proximal colon with a few air-fluid levels raising the question of diarrheal illness/prominent secretions due to infectious/inflammatory enteritis/colitis. Correlate clinically. Appendix: A normal appendix is identified. Intraperitoneal space: No evidence of intraperitoneal free air. No significant free fluid. Vasculature: There is mild stenosis involving the origin of the celiac and SMA arteries. The aorta demonstrates mild atherosclerotic calcification. Lymph nodes: There is no evidence of pathologic adenopathy. Urinary bladder: There is mild bladder distension. There is mild mass effect upon the bladder base by the enlarged prostate. Correlate clinically. Reproductive: The prostate demonstrates moderate nonspecific enlargement. The seminal vesicles are normal. The prostate measures 7.8 x 6 cm. Bones/joints: The thoracolumbar spine demonstrates moderate degenerative changes at multiple levels. There is no evidence of acute fracture. There are moderate degenerative changes of the hip joints. There are mild degenerative changes of the sacroiliac joints. There are mild degenerative changes of the symphyseal pubic joint. Soft tissues: There is a tiny fat-containing umbilical hernia. IMPRESSION: 1. Malpositioned knutson catheter with balloon insufflated within the prostatic urethra. This should be repositioned. 2. Nonspecific moderate prostatic enlargement producing mass effect upon the bladder base. Correlate with PSA levels. 3. Mild bladder distension. 4. Mild retained fluid within the proximal colon with a few air-fluid levels raising the question of diarrheal illness/prominent secretions due to infectious/inflammatory enteritis/colitis. Correlate clinically. 5. Fatty hepatic infiltration. 6. Mild constipation, most noted distally involving the rectal vault. Minor perirectal fat stranding involving the posterior rectum may be secondary to minor stercoral colitis. COMMENTS: Consistent with the [employer]'s Incidental Findings Committee white paper (J Am Romaine Radiol 2018): Any incidental renal lesion less than 1 cm or classified as too small to characterize, or any incidental cystic renal lesion characterized as simple-appearing, is likely benign. No follow-up imaging is recommended for these lesions per consensus recommendations based on imaging criteria. THIS REPORT CONTAINS FINDINGS THAT MAY BE CRITICAL TO PATIENT CARE. The findings were verbally communicated via telephone conference with SOBEIDA VIRK at 5:55 PM EST on 02/26/2025. The findings were acknowledged and understood.
[2025-02-26] MEDS: LACTATED RINGERS 1000ML 1,000 ML 999 ML IV (16:14)
[2025-02-26 16:18] LABS: Hematocrit 43.7 % (42.0-52.0); Hemoglobin 14.8 g/dL (14.1-18.0); Immature Granulocytes % 0.7 %; Mean Corpuscular HGB Conc 33.9 g/dL (31.8-35.4); Mean Corpuscular Hemoglobin 31.4 pg (27.0-31.2); Mean Corpuscular Volume 92.8 fl (80-94); Nucleated Red Blood Cells % 0 %; Platelet Count 241 K/mm3 (142-424); Red Blood Count 4.71 M/mm3 (4.60-6.20); Red Cell Distribution Width-SD 42.7 fL; White Blood Count 14.8 K/mm3 (4.8-10.8)
[2025-02-26 16:23] LABS: Alanine Aminotransferase 27 U/L (12-78); Albumin Level 4.8 g/dl (3.5-5.0); Albumin/Globulin Ratio 1.7 (1.1-1.8); Alkaline Phosphatase 128 U/L (38-126); Anion Gap 14.4 mEq/L (5-15); Aspartate Amino Transferase 25 U/L (17-59); Bilirubin,Total 0.5 mg/dl (0.2-1.3); Blood Urea Nitrogen 17 mg/dl (9-20); Calcium 9.1 mg/dl (8.4-10.2); Carbon Dioxide 26 mmol/L (22.0-30.0); Chloride 101 mmol/L (98-107); Creatinine Clearance Estimated 96 mL/min (50-200); Creatinine,Serum 1.00 mg/dl (0.66-1.25); Estimated Glomerular Filt Rate 73 ml/min (>60); GFR (African American) 88 ML/MIN (>60); Globulin 2.8 g/dL (1.3-3.2); Glucose 175 mg/dl (74-100); Potassium 4.4 mmoL/L (3.5-5.1); Sodium 137 mmol/L (136-145); Total Protein,Serum 7.6 g/dl (6.3-8.2)
[2025-02-26] MEDS: MORPHINE 4MG/ML SYRINGE 4 MG IV (16:33)
[2025-02-26] MEDS: ONDANSETRON 4MG/2ML VIAL 4 MG IV (16:33)
[2025-02-26] MEDS: LIDOCAINE 2% UROJET 10ML TP ×2 (16:40→17:54)
--- NOTE | 2025-02-26 16:41 | PC.NURSE ---
2 unsuccessful attempts at knutson catheter insertion by nany quintero. Arnold kim attempting catheter insertion
--- NOTE | 2025-02-26 16:51 | PC.NURSE ---
De La Cruz catheter was inserted by Arnold Giordano RN. No urine noted.
--- NOTE | 2025-02-26 17:03 | PC.NURSE ---
pt to ct by wheel chair.
[2025-02-26] MEDS: IOPAMIDOL-370 (76%);100ML BOTTLE 75 ML IV (17:04)
[2025-02-26] MEDS: SODIUM CHLORIDE 0.9% 10ML SYR (RAD ONLY) 10 ML IV (17:04)
--- NOTE | 2025-02-26 17:48 | PC.NURSE ---
attempted to advance Knutson catheter per provider request due to catheter not being in the bladder. Unable to advance knutson catheter, removed per patient request. Provider notified that catheter was unable to be advanced. Verbal order received for second Uroject administration by beulah Medellin RN to attempt new knutson catheter placement.
--- NOTE | 2025-02-26 18:00 | PC.NURSE ---
Provider to come to bedside to update patient and family. Pt states he is hesitant about another attempt for knutson catheter insertion.
[2025-02-26] MEDS: PIPERACILLIN/TAZO 4.5 GM in 0.9 % SODIUM CHLORIDE 100 ML IV (18:17)
[2025-02-26] MEDS: LORazepam 2MG/ML VIAL 1 MG IV (18:33)
--- NOTE | 2025-02-26 20:11 | PC.NURSE ---
Attempted Cath insert with no success. PRovider aware
--- NOTE | 2025-02-26 20:47 | PC.NURSE ---
[facility] was called referencing a transfer. Transfer center was unable to place pt on the waitlist due to patient's inability to void urine. The urologist will not consult with anyone while there is a waitlist.
--- NOTE | 2025-02-26 20:52 | PC.NURSE ---
[facility] was called referrencing a transfer. [facility] has no beds at this time.
--- NOTE | 2025-02-26 21:00 | PC.NURSE ---
[facility] has been called referrencing a transfer and they do not have any beds available.
--- NOTE | 2025-02-26 22:34 | PC.NURSE ---
[facility] is at capacity and declined pt.
--- NOTE | 2025-02-26 22:52 | PC.NURSE ---
[facility] called referencing transfer.
--- NOTE | 2025-02-26 23:36 | PC.NURSE ---
ASHLEY contacted r/t xfer to
[2025-02-27 00:07] VITALS: BP 137/63; PULSE 59; RESP 18; TEMP 37; O2SAT 98
== END 2025-02-27 00:23 | disposition other institution (70) ==
PROVIDERS: Emergency Provider Student in an Organized Health Care Education/Training Program; PCP Family Medicine
DX: K56.41 Fecal impaction (principal); R33.8 Other retention of urine; K52.89 Other specified noninfective gastroenteritis and colitis; N40.0 Benign prostatic hyperplasia without lower urinary tract symptoms
CPT/HCPCS: 51702; 74177; 80053; 85025; 96361; 96365; 96375; 99285; 99291; J2060; J2270; J2405; J2543; J7120; Q9967